=== PATIENT | female | born 1940 | race African-American/Black ===

== ENCOUNTER 2021-10-13 13:23 | Emergency (ER) | payer MEDICARE, SELFPAY ==
--- NOTE | ~2021-10-13 | XR_ITS ---
EXAMINATION: CHEST AND KUB CLINICAL INFORMATION: Fall. Constipation. COMPARISON: None TECHNIQUE: AP upright chest and supine views of the abdomen and pelvis. FINDINGS: AP film of the chest demonstrates the cardiopericardial silhouette to be enlarged. No evidence of interstitial or airspace edema. There is some cephalization of vasculature. No pneumothorax or significant pleural effusion. No confluent parenchymal disease. Status post median sternotomy and CABG. Status post left axillary surgery. On this single view I cannot tell whether there may be a greater tuberosity fracture of the proximal right humerus or calcific tendinitis. Supine imaging of the abdomen and pelvis demonstrates stool throughout nondilated colon. No dilated loops of small bowel are appreciated. There is some osteopenia present as well as coarsened trabeculae involving the right superior and inferior pubic rami and left inferior pubic ramus with poor visualization of portions. This could be related to Paget's disease. There are noted to be bilateral common iliac artery stents, right external iliac artery stent, and bilateral superficial femoral artery stents present. 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 XR/XR chest 1V IMPRESSION: Cardiomegaly without acute parenchymal disease within the chest. Clinical correlation for possible right shoulder injury. Question patchy disease of the pelvis. Stool and gas seen throughout nondilated colon. Question Paget's disease about the pelvis.
--- NOTE | ~2021-10-13 | XR_ITS ---
EXAMINATION: CHEST AND KUB CLINICAL INFORMATION: Fall. Constipation. COMPARISON: None TECHNIQUE: AP upright chest and supine views of the abdomen and pelvis. FINDINGS: AP film of the chest demonstrates the cardiopericardial silhouette to be enlarged. No evidence of interstitial or airspace edema. There is some cephalization of vasculature. No pneumothorax or significant pleural effusion. No confluent parenchymal disease. Status post median sternotomy and CABG. Status post left axillary surgery. On this single view I cannot tell whether there may be a greater tuberosity fracture of the proximal right humerus or calcific tendinitis. Supine imaging of the abdomen and pelvis demonstrates stool throughout nondilated colon. No dilated loops of small bowel are appreciated. There is some osteopenia present as well as coarsened trabeculae involving the right superior and inferior pubic rami and left inferior pubic ramus with poor visualization of portions. This could be related to Paget's disease. There are noted to be bilateral common iliac artery stents, right external iliac artery stent, and bilateral superficial femoral artery stents present. 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 XR/XR KUB IMPRESSION: Cardiomegaly without acute parenchymal disease within the chest. Clinical correlation for possible right shoulder injury. Question patchy disease of the pelvis. Stool and gas seen throughout nondilated colon. Question Paget's disease about the pelvis.
[2021-10-13 13:46] VITALS: BP 130/80; PULSE 48; PULSE 60; RESP 17; TEMP 36.5; O2SAT 98; BMI 36.1
[2021-10-13 14:26] VITALS: BP 161/59; PULSE 58; RESP 18; O2SAT 95
--- NOTE | 2021-10-13 14:40 | ECG_ITS ---
Test Reason : syncope Blood Pressure : / mmHG Vent. Rate : 060 BPM Atrial Rate : 000 BPM P-R Int : 000 ms QRS Dur : 096 ms QT Int : 392 ms P-R-T Axes : 000 059 267 degrees QTc Int : 392 ms Atrial fibrillation with premature ventricular or aberrantly conducted complexes Nonspecifc ST-T changes. Abnormal ECG No previous ECGs available Referred By: Cayetano Oliva Electronically Signed By:Brody Mauro
--- NOTE | 2021-10-13 14:53 | ED_ITS ---
HPI - Syncope General Chief Complaint: Syncope Stated Complaint: SYNCOPE PER SNF NO FALL Time Seen by Provider: 10/13/21 14:35 Source: patient Mode of arrival: EMS Limitations: no limitations History of Present Illness HPI narrative: this is an 81-year-old female past medical history significant for CHF, dementia, hypertension presenting to the emergency department with EMS from a alf facility with concerns of a vasovagal episode just prior to her arrival. EMS states that it was reported to them that patient had been having hard stools, she was in the bathroom pushing trying to have a bowel move ment and she had an episode of syncope. She was accompanied when this happened, she did not hit her head. Patient offers no complaints at this time. She tells me she feels well and she wants to go home. She denies chest pain, shortness of breath, fevers, chills, nausea, vomiting, diarrhea, vision changes, headache, weakness. According to nurse from the alf facility they state that she has been weaker than usual however she has been in good spirits. Pt anticoagulted on candice [employer] complaint: loss of consciousness Onset (ago): hour(s) (2) -: second(s) Prodromal symptoms: none Witnessed: Yes - by Bystander Context: other (during bowel movement ) Injuries sustained associated with event: none Current symptoms: back to baseline Treatments prior to arrival: none Related Data Allergies Allergy/AdvReac Type Severity Reaction Status Date / Time Unable to Assess Allergy Unverified 10/13/21 14:39 Review of Systems Review of Systems: Constitutional : No Weight loss, No Fever, No Chills, No Fatigue, No Malaise ENT/Mouth : No sore throat, No Rhinorrhea Eyes: No Eye Pain, No Swelling, No Redness Cardiovascular : No Chest Pain, No SOB, No Dyspnea on Exertion, No Orthopnea, No Edema, No Palpitations Respiratory : No Cough, No Sputum, No Wheezing Gastrointestinal : No Nausea, No Vomiting, No Diarrhea, No Constipation, No abdominal Pain, No Hematochezia, No Melena Genitourinary : No Dysuria, No Urinary Frequency, No Hematuria, Musculoskeletal : No joint pain, No Myalgias, No Joint Swelling Skin : No Skin Lesions, No rash Neuro : No Weakness, No Numbness, No Dizziness, No Headache All other systems reviewed and are negative Yes all other systems are reviewed and are negative PMFSH Past Medical History Attestation statement: The following information was validated with the patient. Source: old records reviewed and nursing notes reviewed Medical History (Updated 10/13/21 @ 18:22 by LIA Isbell) CHF (congestive heart failure) Dementia HTN (hypertension) Surgical History (Updated 10/13/21 @ 13:53 by Corina Chung RN) H/O mastectomy Hx of CABG S/P femoral-popliteal bypass surgery Social History Social History Advance Directives: No Advance Directives Information Provided: Yes Physical Exam Vital Signs: Vital Signs: Last Vital Signs Temp 98.4 F 10/13/21 18:11 Pulse 80 10/13/21 18:11 Resp 16 10/13/21 18:11 BP 117/87 10/13/21 18:11 Pulse Ox 99 10/13/21 18:11 BMI result Body Mass Index 36.1 vss Patient noted to be slightly hypertensive Appearance: Alert.? Oriented to person (patients baseline).? No acute distres s.? Head: Normocephalic, atraumatic, no step-offs or deformities Eyes: Pupils equal, round and reactive to light.? ENT: Pharynx normal.? Neck: Normal inspection.? Neck supple.? CVS: Normal heart rate and rhythm.? Pulses normal.? Respiratory: No respiratory distress.? Breath sounds normal.? Abdomen: Soft and nontender.? Skin: Skin warm and dry.? Normal skin color.? Normal skin turgor.? Extremities: No lower extremity edema.? No calf ttp. 5/5 strength to bilateral upper and lower extremities Back: No midline tenderness, no C-spine tenderness, full range of motion, no CVA tenderness bilaterally Neuro: Oriented (to person).? No motor deficit.? No sensory deficit. Course Reevaluation(s) Reevaluation #1: patient's labs show no acute infection. A normocytic anemia noted. no acute electrolyte abnormalities. No noted UTI. Time: 18:15 Reevaluation #2: Attempted to call patients healthcare proxy, however no answer. Time: 18:19 Reevaluation #3: KUB shows stool however patient not complaining of abdominal pain. Chest x-ray shows cardiomegaly without acute parenchymal disease. There also is a question of Paget's disease of the bone on the pelvis. Based off patient's labs, history, physical exam, imaging I believe that this was a vasovagal episode. Patient is safe for discharge home this alf facility. Vital signs are stable. Comfortable with discharge home. Time: 19:39 MDM - Syncope MDM Narrative Medical decision making narrative: 1445 81-year-old female past medical history significant for dementia, CHF, hypertension presenting to the emergency department from a alf facility status post a vasovagal episode while having a bowel movement. No preceding symptoms. Patient had been complaining of hard stool for the past few days to staff at [facility]. Nurse from nursing facility tells me patient has been weaker than usual however has been in good spirits. Eating and drinking well. On eliquis Upon physical examination patient is alert to person, this is her baseline. Lungs are clear. S1-S2 appreciated. Abdomen soft nontender nondistended. No focal neuro deficits. Patient able to follow commands. Moving all extremities. Plan at this time is to obtain basic labs, point of care Medical Records Attestation: I reviewed the patient's medical records. Lab Data Attestation: I reviewed the patient's lab results. Result diagrams: 10/13/21 15:57 10/13/21 15:57 Labs: Lab Results 10/13/21 10/13/21 10/13/21 Range/Units 15:28 15:57 15:57 WBC 9.4 (4.8-10.8) X10*3/uL RBC 3.57 L (4.20-5.50) X10*6/uL Hgb 10.0 L (12.0-16.0) g/dl Hct 31.0 L (37.0-47.0) % MCV 86.8 (80.0-98.0) fL MCH 28.0 (27.0-33.0) pg MCHC 32.3 (31.0-35.0) g/dl RDW 14.2 (11.0-16.0) % Plt Count 370 (160-400) X10*3/uL MPV 8.8 L (9.4-12.3) fL Immature Gran % (Auto) 0.3 (0.0-0.4) % Neut % (Auto) 70.4 (45-73) % Lymph % (Auto) 17.3 L (20-40) % Marin % (Auto) 9.0 (2-11) % Eos % (Auto) 2.6 (0-4) % Baso % (Auto) 0.4 (0-2) % Lymph # (Auto) 1.6 (1.2-4.9) X10*3/uL Marin # (Auto) 0.8 (0.1-1.2) X10*3/uL Eos # (Auto) 0.2 (0.0-0.4) X10*3/uL Baso # (Auto) 0.0 (0.0-0.2) X10*3/uL Abs Immat Gran (auto) 0.03 (0.00-0.03) X10*3/uL Absolute Neuts (auto) 6.6 (2.0-8.3) x10*3/uL Absolute Nucleated RBC 0.000 (0.0-0.012) X10*3/uL Nucleated RBC % (auto) 0.0 (0.0-0.2) /100WBC Sodium 142 (135-145) mmol/L Potassium 3.9 (3.3-5.1) mmol/L Chloride 103 (96-108) mmol/L Carbon Dioxide 27 (22-29) mmol/L Anion Gap 16 (12-20) BUN 25 H (9-16) mg/dL Creatinine 1.06 (0.5-1.4) mg/dL Estim Creat Clear Calc 40.6 Estimated GFR 50 POC Glucose 109 (60-115) mg/dL Random Glucose 113 (60-115) mg/dL Calcium 10.0 (8.4-10.2) mg/dL Magnesium 1.5 L (1.6-2.6) mg/dL Total Bilirubin 0.4 (0.0-1.0) mg/dL AST 21 (5-31) U/L ALT 13 (0-31) U/L Alkaline Phosphatase 116 (39-117) U/L Total Protein 8.1 H (6.5-8.0) g/dL Albumin 3.8 (3.5-5.0) g/dL Urine Color Urine Appearance Urine pH (5.0-8.0) Ur Specific Sheridan (1.005-1.025) Urine Protein (NEG-TRACE) MG/DL Urine Glucose (UA) (NEG) MG/DL Urine Ketones (NEG) MG/DL Urine Blood (NEG) Urine Nitrite (NEG) Ur Leukocyte Esterase (NEG) Urine RBC (0) /HPF Urine WBC (0-4) /HPF Ur Squamous Epith Cells /LPF Amorphous Sediment /LPF Urine Bacteria /LPF Urine Mucus /LPF 10/13/21 Range/Units Unknown WBC (4.8-10.8) X10*3/uL RBC (4.20-5.50) X10*6/uL Hgb (12.0-16.0) g/dl Hct (37.0-47.0) % MCV (80.0-98.0) fL MCH (27.0-33.0) pg MCHC (31.0-35.0) g/dl RDW (11.0-16.0) % Plt Count (160-400) X10*3/uL MPV (9.4-12.3) fL Immature Gran % (Auto) (0.0-0.4) % Neut % (Auto) (45-73) % Lymph % (Auto) (20-40) % Marin % (Auto) (2-11) % Eos % (Auto) (0-4) % Baso % (Auto) (0-2) % Lymph # (Auto) (1.2-4.9) X10*3/uL Marin # (Auto) (0.1-1.2) X10*3/uL Eos # (Auto) (0.0-0.4) X10*3/uL Baso # (Auto) (0.0-0.2) X10*3/uL Abs Immat Gran (auto) (0.00-0.03) X10*3/uL Absolute Neuts (auto) (2.0-8.3) x10*3/uL Absolute Nucleated RBC (0.0-0.012) X10*3/uL Nucleated RBC % (auto) (0.0-0.2) /100WBC Sodium (135-145) mmol/L Potassium (3.3-5.1) mmol/L Chloride (96-108) mmol/L Carbon Dioxide (22-29) mmol/L Anion Gap (12-20) BUN (9-16) mg/dL Creatinine (0.5-1.4) mg/dL Estim Creat Clear Calc Estimated GFR POC Glucose (60-115) mg/dL Random Glucose (60-115) mg/dL Calcium (8.4-10.2) mg/dL Magnesium (1.6-2.6) mg/dL Total Bilirubin (0.0-1.0) mg/dL AST (5-31) U/L ALT (0-31) U/L Alkaline Phosphatase (39-117) U/L Total Protein (6.5-8.0) g/dL Albumin (3.5-5.0) g/dL Urine Color YELLOW Urine Appearance HAZY Urine pH 5.5 (5.0-8.0) Ur Specific Sheridan 1.020 (1.005-1.025) Urine Protein NEG (NEG-TRACE) MG/DL Urine Glucose (UA) NEG (NEG) MG/DL Urine Ketones NEG (NEG) MG/DL Urine Blood NEG (NEG) Urine Nitrite NEG (NEG) Ur Leukocyte Esterase 1+ H (NEG) Urine RBC 0-2 (0) /HPF Urine WBC 1-4 (0-4) /HPF Ur Squamous Epith Cells TRACE /LPF Amorphous Sediment 1+ /LPF Urine Bacteria TRACE /LPF Urine Mucus TRACE /LPF Imaging Data Xray of chest and KUB: Attestation: I personally reviewed and interpreted this imaging study as follows: Radiologist's impression: XR/XR chest 1V IMPRESSION: Cardiomegaly without acute parenchymal disease within the chest. Clinical correlation for possible right shoulder injury. ? Question patchy disease of the pelvis. Stool and gas seen throughout nondilated colon. ? Question Paget's disease about the pelvis.? ECG Data Attestation: I personally reviewed and interpreted this ECG as follows: ECG interpretation date: 10/13/21 ECG interpretation time: 14:50 Prior ECG tracings: not available for review Interpretation: ventricular rate of 60, QRS normal, QTC normal. EKG shows atrial fibrillation. No ST elevations or inversions concerning for acute ischemia. No previous EKGs to compare with. Critical Care Time Critical Care Time Critical Care Time: Yes Total Critical Care Time: 36 Attestation: I attest to this time spent taking care of the patient speaking to SNF, calling healthcare proxy, reviewing labs, imaging. Discharge Plan Discharge Clinical Impression: Vasovagal syncope Patient Disposition: Xfer [facility] Instructions: Syncope (ED), Syncope in Older Adults (ED) Additional Instructions: Take your medications as prescribed. Follow-up with your primary care provider this week. Xray concerning for pagets disease of the bone in pelvis region, follow up with PCP. Return to the emergency department with new or worsening symptoms. In case of emergency call 911 Referrals: Lemuel Waddell MD [Primary Care Provider] - 2 days
[2021-10-13 15:33] LABS: Glucose, Whole Blood 109 mg/dL (60-115)
[2021-10-13 15:34] VITALS: BP 112/60; PULSE 64; RESP 16; TEMP 37.1; O2SAT 95
[2021-10-13 15:49] LABS: Appearance Urine HAZY; Color Urine YELLOW; Glucose Urine UA NEG (NEG); Leukocyte Esterase Urine 1+ (NEG); Nitrite Urine NEG (NEG); PH 5.5 (5.0-8.0); UACC Culture Trigger YES; Urine Blood NEG (NEG); Urine Ketones NEG (NEG); Urine Protein NEG (NEG-TRACE)
[2021-10-13 16:13] LABS: Amorphous Sediment Urine 1+ /LPF; Bacteria Urine TRACE /LPF; Mucus Urine TRACE /LPF; RBC Urine 0-2 /HPF (0); Squamous Epithelial Cell Urine TRACE /LPF; UACC CULT YES
--- NOTE | 2021-10-13 16:31 | PC.NURSE ---
PATIENT WAS INCONTINENT OF URINE ,PATIENT WAS CLEAN UP AND ASSISTED ON BEDPAN
[2021-10-13 16:39] LABS: MANUAL DIFF FLAG NO
[2021-10-13 16:42] LABS: Basophils Percent Auto 0.4 % (0-2); Eosinophils Absolute Auto 0.2 X10*3/uL (0.0-0.4); Eosinophils Percent Auto 2.6 % (0-4); Imm Gran Abs Auto 0.03 X10*3/uL (0.00-0.03); Imm Gran Pct Auto 0.3 % (0.0-0.4); Lymphocytes Absolute Auto 1.6 X10*3/uL (1.2-4.9); Lymphocytes Percent Auto 17.3 % (20-40); Mean Corpuscular HGB Conc 32.3 g/dl (31.0-35.0); Mean Corpuscular Volume 86.8 fL (80.0-98.0); Mean Platelet Volume 8.8 fL (9.4-12.3); Monocytes Absolute Auto 0.8 X10*3/uL (0.1-1.2); Neutrophils Absolute Auto 6.6 x10*3/uL (2.0-8.3); Neutrophils Percent Auto 70.4 % (45-73); Platelet Count 370 X10*3/uL (160-400); Red Blood Count 3.57 X10*6/uL (4.20-5.50); Red Cell Distribution Width 14.2 % (11.0-16.0); White Blood Count 9.4 X10*3/uL (4.8-10.8)
[2021-10-13 16:56] LABS: Alanine Aminotransferase 13 U/L (0-31); Albumin Level 3.8 g/dL (3.5-5.0); Alkaline Phosphatase 116 U/L (39-117); Anion Gap 16 (12-20); Aspartate Amino Transferase 21 U/L (5-31); Bilirubin Total 0.4 mg/dL (0.0-1.0); Blood Urea Nitrogen 25 mg/dL (9-16); Carbon Dioxide 27 mmol/L (22-29); Chloride 103 mmol/L (96-108); Creatinine Clr Calc Pharmacy 40.6; Estimated Glomerular Filt Rate 50; Glucose Random 113 mg/dL (60-115); Magnesium 1.5 mg/dL (1.6-2.6); Potassium 3.9 mmol/L (3.3-5.1); Sodium 142 mmol/L (135-145); Total Protein 8.1 g/dL (6.5-8.0)
[2021-10-13 18:11] VITALS: BP 117/87; PULSE 80; RESP 16; TEMP 36.9; O2SAT 99
[2021-10-13 20:29] VITALS: BP 118/62; PULSE 64; RESP 16; TEMP 36.6; O2SAT 99
== END 2021-10-13 21:27 | disposition skilled nursing facility (03) ==
PROVIDERS: Physician Assistant; Emergency Provider Emergency Medicine; PCP Family Medicine
DX: R55 Syncope and collapse (principal); I11.0 Hypertensive heart disease with heart failure; I50.9 Heart failure, unspecified; D64.9 Anemia, unspecified; F03.90 Unspecified dementia, unspecified severity, without behavioral disturbance, psychotic disturbance, mood disturbance, and anxiety; Z79.01 Long term (current) use of anticoagulants
CPT/HCPCS: 36415; 71045; 74018; 80053; 81001; 82947; 83735; 85025; 87086; 93005; 99284; 99291

== ENCOUNTER 2021-12-16 | Outpatient (RCR) | payer MEDICARE, BC, SELFPAY | END 2022-05-15 14:36 | disposition home or self-care (01) | LOC: HO.WCC | PROVIDERS: PCP Family Medicine; Visit Provider Physician Assistant | DX: T24.211D Burn of second degree of right thigh, subsequent encounter (principal); E44.1 Mild protein-calorie malnutrition; I10 Essential (primary) hypertension; F03.90 Unspecified dementia, unspecified severity, without behavioral disturbance, psychotic disturbance, mood disturbance, and anxiety; T31.0 Burns involving less than 10% of body surface; Z90.12 Acquired absence of left breast and nipple; Z99.81 Dependence on supplemental oxygen | CPT/HCPCS: 11042; 16020; 99212 ==

== ENCOUNTER 2022-08-22 16:25 | Inpatient (IN) | payer MEDICARE, OTHER, SELFPAY ==
--- NOTE | ~2022-08-22 | CT_ITS ---
EXAMINATION: CT HEAD WITHOUT CONTRAST CLINICAL INFORMATION: Left lower extremity weakness. Anticoagulated. COMPARISON: None TECHNIQUE: Contiguous axial imaging was performed from the skull base to vertex without intravenous administration of contrast. This CT examination was performed using dose optimization techniques as appropriate, variously including the following: *Automated exposure control *Adjustment of mA and/or kV according to patient size (this includes techniques or standardized protocols for targeted exams where dose is matched to indication/reason for exam; i.e. extremities or head) *Use of iterative reconstruction technique DLP: 605 mGy-cm FINDINGS: No acute infarct or hemorrhage. Symmetrical white matter changes most consistent with terminal supply white matter chronic lacunar ischemic/infarct involving the jorgensen radiata and centrum semiovale. In addition, there is involvement of the striatocapsular regions consistent with involvement of the lenticular striate arteries as well. No extra axial collection. Brainstem and cerebellum intact. No calvarial lesion or sinus disease. CT/CT head/brain wo IV con IMPRESSION: No acute intracranial pathology.
--- NOTE | ~2022-08-22 | XR_ITS ---
EXAMINATION: XR CHEST CLINICAL INFORMATION: Syncope COMPARISON: 10/13/2021 TECHNIQUE: Frontal view of the chest was obtained. FINDINGS: Evidence of increased cardiac surgery. Clips left axilla. Marked cardiomegaly changes of CHF. No major zones of airspace disease ectopic air or large pleural effusion. XR/XR chest 1V IMPRESSION: CHF.
--- NOTE | ~2022-08-22 | US_ITS ---
EXAMINATION: US EXTRACRANIAL CAROTID DUPLEX, BILATERAL CLINICAL INFORMATION: Syncope COMPARISON: None TECHNIQUE: Real-time ultrasound and Doppler techniques (integrating B-mode 2-D vascular images, Doppler spectral analysis and color-flow Doppler imaging) were utilized to interrogate the extracranial carotid arteries, the vertebral arteries and proximal subclavian arteries bilaterally. The degree of stenosis is determined by criteria similar to NASCET. FINDINGS: Right Side: 1. There is mild atherosclerotic plaque seen in the bifurcation/proximal ICA region. 2. The common carotid artery PSV proximally is 65 cm/s and distally 78 cm/s. 3. The proximal internal carotid artery velocities are 72 cm/s systolic and 11 cm/s diastolic. 4. The proximal external carotid artery PSV is 136 cm/s. 5. The vertebral artery shows antegrade flow. 6. The subclavian artery waveforms are normal. Left Side: 1. There is mild atherosclerotic plaque seen in the bifurcation/proximal ICA region. 2. The common carotid artery PSV proximally is 112 cm/s and distally 78 cm/s. 3. The proximal internal carotid artery velocities are 49 cm/s systolic and 13 cm/s diastolic. 4. The proximal external carotid artery PSV is 103 cm/s. 5. The vertebral artery shows antegrade flow. 6. The subclavian artery waveforms are normal. Incidental note of cardiac arrhythmia. US/US carotid duplex BI IMPRESSION: 1. RIGHT: Minimal, non-hemodynamically significant stenosis of the proximal right internal carotid artery corresponding to a 0-49% stenosis by velocity criteria. 2. LEFT: Minimal, non-hemodynamically significant stenosis of the proximal left internal carotid artery corresponding to a 0-49% stenosis by velocity criteria. 3. Incidental note of cardiac arrhythmia.
[2022-08-22 16:31] VITALS: BP 135/78; PULSE 66; O2SAT 98
--- NOTE | 2022-08-22 16:46 | ECG_ITS ---
Test Reason : SYNCOPE Blood Pressure : / mmHG Vent. Rate : 059 BPM Atrial Rate : 000 BPM P-R Int : 000 ms QRS Dur : 100 ms QT Int : 420 ms P-R-T Axes : 000 026 -19 degrees QTc Int : 415 ms Atrial fibrillation with slow ventricular response Nonspecific ST abnormality Inferior leads Lateral leads Intra-ventricular conduction delay Abnormal ECG When compared with ECG of 13-OCT-2021 14:50, ST no longer depressed in Anterior leads T wave inversion no longer evident in Lateral leads Premature ventricular complexes are no longer Present \ Referred By: Audrey Jalloh Electronically Signed By:DORIS WALDROP MD
[2022-08-22 16:51] VITALS: BMI 34.4
[2022-08-22 17:02] VITALS: BP 140/66; PULSE 68; RESP 15; TEMP 36.7; O2SAT 95
--- NOTE | 2022-08-22 17:03 | PC.NURSE ---
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
--- NOTE | 2022-08-22 17:52 | ED.SYNCOPE ---
HPI - Syncope General Chief Complaint: Syncope Stated Complaint: Syncopal Episode Time Seen by Provider: 08/22/22 17:30 Source: patient Mode of arrival: EMS Limitations: no limitations History of Present Illness HPI narrative: 82-year-old female who presents emergency department for evaluation of syncopal episode. The patient has of dementia and cannot give me details of her syncopal episode. According to the note sent in from the patient's care facility, the patient was eating dinner and then had an episode of loss of consciousness. The patient's provider, Dr. Reyes did call the emergency department and stated that the patient had a syncopal episode. He stated that the patient similar syncopal episodes in the past. He stated that the patient did not have any decreased oxygen saturations and no changes in her vital signs. ED nursing note reports that the patient was hypoxic and hypotensive. In reviewing the patient's records, she has a history of dementia, hypertension, hypertension, CHF, atrial fibrillation on Eliquis, syncope, , fem-pop bypass, CABG and left mastectomy. Patient was seen in the emergency department on 10/13/2021 for syncopal episode while she was moving her bowels, at that time her diagnosis was vasovagal syncope. The patient's friend, Jessica who is with her states the patient has been in bed recently and has had difficulty with her mobility for the past several weeks. I did speak to the patient's nephew, Dr. Simeon Ferrara who is an physician coder/veterinarian helper and can be reached at . He is concerned that his aunt is had multiple syncopal episodes and that she may be having any arrhythmia or heart block as the cause. He also states that is not aware of any stroke in the past but he did note that the patient is a decreased mobility over the past month. Related Data Allergies Allergy/AdvReac Type Severity Reaction Status Date / Time Unable to Assess Allergy Unverified 10/13/21 14:39 Review of Systems Review of Systems: Yes Unobtainable due to mental status (Chronic dementia) [facility] Past Medical History [facility] Narrative: Social history: Patient lives in [facility] facility, she does not drink alcohol smoke cigarettes or use drugs. Medical History CHF (congestive heart failure) Dementia HTN (hypertension) Surgical History H/O mastectomy Hx of CABG S/P femoral-popliteal bypass surgery Social History Social History Advance Directives: No Advance Directives Information Provided: No Physical Exam Vital Signs: Vital Signs: Last Vital Signs Temp 98.6 F 08/22/22 20:00 Pulse 79 08/22/22 20:00 Resp 13 08/22/22 20:00 BP 153/77 H 08/22/22 20:00 Pulse Ox 92 08/22/22 20:00 O2 Del Method 08/22/22 20:00 BMI result Body Mass Index 34.4 Const: General: cooperative and no acute distress Orientation/consciousness: oriented to person Limitations: other limitations (Dementia) HEENT: Head: Yes normal to inspection, Yes normocephalic and Yes atraumatic Ears: external ears normal General nose exam: Normal external nose present Face and sinus: Yes normal facial exam Mouth: Normal oral and palatal mucosa present Throat: Yes posterior oropharynx normal Eyes: General: appearance normal, both eyes and all related structures Pupils: Equal, round and reactive pupils present Neck: Neck: Yes normal visual inspection, Yes no lymphadenopathy, Yes trachea midline and Yes supple Chest: Chest palpation & inspection: normal inspection of the chest and normal palpation of entire chest wall Resp: Effort & Inspection: normal respiratory effort and able to speak in complete sentences Auscultation: clear to auscultation bilaterally Cardio: Rate: regular rate Rhythm: regular rhythm Heart sounds: S1 normal heart sound present, S2 normal heart sound present and Murmur heart sound present systolic holo, III/ and at the left sternal border GI: Inspection: Yes normal to inspection Palpation (GI): Soft to palpation, nontender and no guarding Auscultation: normal bowel sounds : General: Yes no CVA tenderness Back/Spine/Pelvis: Back: no CVA tenderness Skin: General skin exam: no rashes or lesions noted Neuro: Other: Strength exam: Holds both arms up against gravity, left arm appears to be weaker than left, minimally able to move his left lower extremity from side to side General: oriented to person Cranial nerves: Yes CN's II-XII intact bilaterally and Yes Equal, round and reactive pupils present Cognition (Neuro): normal cognition Motor exam (neuro): Abnormal motor strength present Extrem: General: Yes normal to inspection Psych: Appearance: grossly normal Speech and movement: Normal speech and movement present Affect: normal affect Attitude: cooperative Thought process: Normal thought process present Course Course Course Narrative: 82-year-old female who presents emergency department for evaluation of a witnessed syncopal episode at her care facility, apparently she had a loss of consciousness for 5 minutes, according to her doctor at the facility, she had no hypotension and no hypoxia. Patient has had similar syncopal episodes in the past. Her examination did reveal a heart exam with irregular irregular rhythm, 3/6 systolic murmur best heard at the left lower sternal border, left-sided weakness which is old, otherwise exam was unremarkable. I did order a syncope workup to include CBC, CMP, troponin, BNP, PT INR, PTT, urinalysis. Will also obtain a 12 EKG , CT scan of the head and chest x-ray. 215: There was a delay in getting this patient's blood work since she was very difficult to get blood from, every attempt to give blood the patient would resist and fight, we were not able to establish an IV on her. Laboratory evaluation: H&H low: 8.6 and 27. CMP was normal. BNP elevated 228. High sensitive troponin was detectable but not elevated 8.6. Laboratory evaluation: Chest x-ray was consistent with cardiomegaly and increased interstitial markings consistent with CHF. CT scan of the head : Radiology interpretation did not reveal any acute findings, the patient does have evidence of old lacunar infarcts and white matter changes. Twelve EKG atrial fibrillation with a slow ventricular response of 59, Q-waves V1 and V2 with less than [address] segment depression V5 through V6 which is old. At this time I do not have a clear etiology for the patient's syncope, she has had multiple episodes in the past, I did discuss this with the patient's nephew who is an physician coder who was concerned that the patient may be having a cardiac arrhythmia as the cause of her syncopal episode. I did discuss this with the patient's healthcare proxy who was here in the emergency department with her as well. The patient will be admitted for syncopal workup. I will discuss this with the covering hospitalist. MDM - Syncope Medical Records Attestation: I reviewed the patient's medical records. Lab Data Attestation: I reviewed the patient's lab results. Result diagrams: 08/22/22 21:06 08/22/22 20:12 Labs: Lab Results 08/22/22 08/22/22 08/22/22 Range/Units 20:12 20:12 21:06 WBC 8.3 (4.8-10.8) X10*3/uL RBC 3.28 L (4.20-5.50) X10*6/uL Hgb 8.6 L (12.0-16.0) g/dl Hct 27.1 L (37.0-47.0) % MCV 82.6 (80.0-98.0) fL MCH 26.2 L (27.0-33.0) pg MCHC 31.7 (31.0-35.0) g/dl RDW 14.6 (11.0-16.0) % Plt Count 374 (160-400) X10*3/uL MPV 8.7 L (9.4-12.3) fL Immature Gran % (Auto) 0.4 (0.0-0.4) % Neut % (Auto) 59.0 (45-73) % Lymph % (Auto) 25.2 (20-40) % [place] % (Auto) 11.8 H (2-11) % Eos % (Auto) 3.1 (0-4) % Baso % (Auto) 0.5 (0-2) % Lymph # (Auto) 2.1 (1.2-4.9) X10*3/uL [place] # (Auto) 1.0 (0.1-1.2) X10*3/uL Eos # (Auto) 0.3 (0.0-0.4) X10*3/uL Baso # (Auto) 0.0 (0.0-0.2) X10*3/uL Abs Immat Gran (auto) 0.03 (0.00-0.03) X10*3/uL Absolute Neuts (auto) 4.9 (2.0-8.3) x10*3/uL Absolute Nucleated RBC 0.000 (0.0-0.012) X10*3/uL Nucleated RBC % (auto) 0.0 (0.0-0.2) /100WBC PT Cancelled INR Cancelled APTT Cancelled Sodium 138 (135-145) mmol/L Potassium 5.1 D (3.3-5.1) mmol/L Chloride 102 (96-108) mmol/L Carbon Dioxide 23 (22-29) mmol/L Anion Gap 18 (12-20) BUN 21 H (9-16) mg/dL Creatinine 1.07 (0.5-1.4) mg/dL Estim Creat Clear Calc 38.6 Estimated GFR 49 Random Glucose 108 (60-115) mg/dL Calcium 9.3 D (8.4-10.2) mg/dL Total Bilirubin 0.3 (0.0-1.0) mg/dL AST 27 (5-31) U/L ALT 19 (0-31) U/L Alkaline Phosphatase 99 (39-117) U/L Troponin I High Sens (<3.5-17.0) ng/L B-Natriuretic Peptide (<100) pg/mL Total Protein 7.7 (6.5-8.0) g/dL Albumin 3.4 L (3.5-5.0) g/dL 08/22/22 Range/Units 21:06 WBC (4.8-10.8) X10*3/uL RBC (4.20-5.50) X10*6/uL Hgb (12.0-16.0) g/dl Hct (37.0-47.0) % MCV (80.0-98.0) fL MCH (27.0-33.0) pg MCHC (31.0-35.0) g/dl RDW (11.0-16.0) % Plt Count (160-400) X10*3/uL MPV (9.4-12.3) fL Immature Gran % (Auto) (0.0-0.4) % Neut % (Auto) (45-73) % Lymph % (Auto) (20-40) % [place] % (Auto) (2-11) % Eos % (Auto) (0-4) % Baso % (Auto) (0-2) % Lymph # (Auto) (1.2-4.9) X10*3/uL [place] # (Auto) (0.1-1.2) X10*3/uL Eos # (Auto) (0.0-0.4) X10*3/uL Baso # (Auto) (0.0-0.2) X10*3/uL Abs Immat Gran (auto) (0.00-0.03) X10*3/uL Absolute Neuts (auto) (2.0-8.3) x10*3/uL Absolute Nucleated RBC (0.0-0.012) X10*3/uL Nucleated RBC % (auto) (0.0-0.2) /100WBC PT INR APTT Sodium (135-145) mmol/L Potassium (3.3-5.1) mmol/L Chloride (96-108) mmol/L Carbon Dioxide (22-29) mmol/L Anion Gap (12-20) BUN (9-16) mg/dL Creatinine (0.5-1.4) mg/dL Estim Creat Clear Calc Estimated GFR Random Glucose (60-115) mg/dL Calcium (8.4-10.2) mg/dL Total Bilirubin (0.0-1.0) mg/dL AST (5-31) U/L ALT (0-31) U/L Alkaline Phosphatase (39-117) U/L Troponin I High Sens 8.6 (<3.5-17.0) ng/L B-Natriuretic Peptide 228 H (<100) pg/mL Total Protein (6.5-8.0) g/dL Albumin (3.5-5.0) g/dL ECG Data Attestation: I personally reviewed and interpreted this ECG as follows: Interpretation: Atrial fibrillation with a slow ventricular rate of 59, prolonged QRS 100 milliseconds, normal QTC 415 milliseconds, Q-waves in V1 and V2, less than [address] segment depression V5 and V6, compared to EKG dated 10/13/2021, the atrial fibrillation in low rate are old, Q-waves V1 through V 2 are old, previous EKG revealed PVCs not seen on this EKG. Discharge Plan Discharge Clinical Impression: Syncope
--- NOTE | 2022-08-22 18:43 | PC.NURSE ---
unable to draw patient labs as patient a difficult draw ,rn aware ,darlin charles said she was goining to use ultra sound guided to put bin iv and get labs .
[2022-08-22 18:47] VITALS: BP 157/73; PULSE 72; RESP 15; TEMP 37.3; O2SAT 96
[2022-08-22 20:00] VITALS: BP 153/77; PULSE 79; RESP 13; TEMP 37; O2SAT 92
[2022-08-22 20:51] LABS: Alanine Aminotransferase 19 U/L (0-31); Albumin Level 3.4 g/dL (3.5-5.0); Alkaline Phosphatase 99 U/L (39-117); Anion Gap 18 (12-20); Aspartate Amino Transferase 27 U/L (5-31); Bilirubin Total 0.3 mg/dL (0.0-1.0); Blood Urea Nitrogen 21 mg/dL (9-16); Calcium 9.3 mg/dL (8.4-10.2); Carbon Dioxide 23 mmol/L (22-29); Chloride 102 mmol/L (96-108); Creatinine Clr Calc Pharmacy 38.6; Estimated Glomerular Filt Rate 49; Glucose Random 108 mg/dL (60-115); Potassium 5.1 mmol/L (3.3-5.1); Sodium 138 mmol/L (135-145); Total Protein 7.7 g/dL (6.5-8.0)
[2022-08-22 21:13] LABS: Basophils Percent Auto 0.5 % (0-2); Eosinophils Absolute Auto 0.3 X10*3/uL (0.0-0.4); Eosinophils Percent Auto 3.1 % (0-4); Hematocrit 27.1 % (37.0-47.0); Hemoglobin 8.6 g/dl (12.0-16.0); Imm Gran Abs Auto 0.03 X10*3/uL (0.00-0.03); Imm Gran Pct Auto 0.4 % (0.0-0.4); Lymphocytes Absolute Auto 2.1 X10*3/uL (1.2-4.9); Lymphocytes Percent Auto 25.2 % (20-40); Mean Corpuscular HGB Conc 31.7 g/dl (31.0-35.0); Mean Corpuscular Hemoglobin 26.2 pg (27.0-33.0); Mean Corpuscular Volume 82.6 fL (80.0-98.0); Mean Platelet Volume 8.7 fL (9.4-12.3); Monocytes Percent Auto 11.8 % (2-11); Neutrophils Absolute Auto 4.9 x10*3/uL (2.0-8.3); Platelet Count 374 X10*3/uL (160-400); Red Blood Count 3.28 X10*6/uL (4.20-5.50); Red Cell Distribution Width 14.6 % (11.0-16.0); White Blood Count 8.3 X10*3/uL (4.8-10.8)
--- NOTE | 2022-08-22 21:30 | PC.NURSE ---
Patient was an extremely difficult stick for both labs and IV. MD attempted groin stick for labs but were not able to be run.
[2022-08-22 21:36] LABS: B Type Natriuretic Peptide 228 pg/mL (<100); Troponin-I High Sensitivity 8.6 ng/L (<3.5-17.0)
[2022-08-22 21:53] VITALS: BP 160/72; PULSE 78; RESP 14; TEMP 36.8; O2SAT 98
[2022-08-22 23:01] VITALS: BP 164/81; PULSE 83; RESP 20; TEMP 36.8; O2SAT 97
--- NOTE | 2022-08-22 23:04 | P.HPHOSP_ITS ---
History of Present Illness Date of Service: 08/22/22 Chief Complaint: Syncope This is a 82-year-old female with a pertinent history of permanent atrial fibrillation on Eliquis, dementia, essential hypertension, congestive heart failure, coronary artery disease status post CABG, peripheral vascular disease status post fem-pop bypass who was sent by patient's care facility for evaluation of syncope. Patient is pleasantly demented and is only oriented to self. She is unable to provide any history at this time. History was obtained from chart review as below: According to the note sent in from the patient's care facility, the patient was eating dinner and then had an episode of loss of consciousness.? The patient's provider, Dr. Reyes did call the emergency department and stated that the patient had a syncopal episode.? He stated that the patient similar syncopal episodes in the past.? He stated that the patient did not have any decreased oxygen saturations and no changes in her vital signs. Patient was seen in the emergency department on 10/13/2021 for syncopal episode while she was moving her bowels, at that time her diagnosis was vasovagal syncope.? The patient's friend, Jessica states the patient has been in bed recently and has had difficulty with her mobility for the past several weeks. ER physician spoke to nephjuan luis, Dr. Simeon Ferrara who is an public works supervisor/security officer and can be reached at .? He is concerned that his aunt has had multiple syncopal episodes and that she may be having any arrhythmia or heart block as the cause.? He requested admission for cardiac workup to rule out cardiogenic syncope. Review of Systems Review of Systems: Yes Unobtainable due to mental status [facility] Medical History (Updated 08/22/22 @ 23:12 by Karri Rubio MD) Atrial fibrillation CHF (congestive heart failure) Coronary artery disease Dementia HTN (hypertension) Peripheral vascular disease Surgical History H/O mastectomy Hx of CABG S/P femoral-popliteal bypass surgery Social History Advance Directives: No Advance Directives Information Provided: No Meds Allergies Allergy/AdvReac Type Severity Reaction Status Date / Time Unable to Assess Allergy Unverified 10/13/21 14:39 Active Medications: Current Medications Acetaminophen (Acetaminophen 325 Mg Tablet) 650 mg PO Q6H PRN PRN Reason: Pain, Mild (Pain Scale 1-3) Melatonin (Melatonin 3 Mg Tablet) 6 mg PO BEDTIME PRN PRN Reason: Insomnia Ondansetron HCl (Ondansetron Hcl 4 Mg/2 Ml Vial) 4 mg IVPUSH Q8H PRN PRN Reason: Nausea and Vomiting Pharmacy Consult (Consult Rx Perform Med Rec) 1 each MISCELLANE ONCE STA Stop: 08/22/22 22:30 Sodium Chloride (0.9 % Sodium Chloride Flush 3 Ml Syringe) 3 ml IVFLUSH QSHIFT [facility] Physical Exam Vital Signs and Narrative: Vital Signs: Last Vital Signs Temp 98.3 F 08/22/22 21:53 Pulse 78 08/22/22 21:53 Resp 14 08/22/22 21:53 BP 160/72 H 08/22/22 21:53 Pulse Ox 98 08/22/22 21:53 O2 Del Method 08/22/22 21:53 BMI result Body Mass Index 34.4 Elderly female lying in bed in no distress Neck supple, no JVD Irregularly irregular, S1-S2 heard, systolic murmur appreciated Decreased breath sounds at bases, no wheezing or crackles appreciated Abdomen soft nontender, no guarding, no rigidity Patient is awake, alert and oriented to self, disoriented to place, time and person ; no ophthalmoplegia, left-sided weakness seen Psych: Normal mood No pedal edema Results Labs CBC and Chem 7: 08/22/22 21:06 08/22/22 20:12 Labs: Laboratory Results - last 24 hr 08/22/22 08/22/22 08/22/22 20:12 20:12 21:06 MCV 82.6 MCH 26.2 L MCHC 31.7 RDW 14.6 Plt Count 374 MPV 8.7 L Immature Gran % (Auto) 0.4 Neut % (Auto) 59.0 Lymph % (Auto) 25.2 [place] % (Auto) 11.8 H Eos % (Auto) 3.1 Baso % (Auto) 0.5 Lymph # (Auto) 2.1 [place] # (Auto) 1.0 Eos # (Auto) 0.3 Baso # (Auto) 0.0 Abs Immat Gran (auto) 0.03 Absolute Neuts (auto) 4.9 Absolute Nucleated RBC 0.000 Nucleated RBC % (auto) 0.0 PT Cancelled INR Cancelled APTT Cancelled Anion Gap 18 Estim Creat Clear Calc 38.6 Estimated GFR 49 Random Glucose 108 Calcium 9.3 D Total Bilirubin 0.3 AST 27 ALT 19 Alkaline Phosphatase 99 Troponin I High Sens B-Natriuretic Peptide Total Protein 7.7 Albumin 3.4 L 08/22/22 21:06 MCV MCH MCHC RDW Plt Count MPV Immature Gran % (Auto) Neut % (Auto) Lymph % (Auto) [place] % (Auto) Eos % (Auto) Baso % (Auto) Lymph # (Auto) [place] # (Auto) Eos # (Auto) Baso # (Auto) Abs Immat Gran (auto) Absolute Neuts (auto) Absolute Nucleated RBC Nucleated RBC % (auto) PT INR APTT Anion Gap Estim Creat Clear Calc Estimated GFR Random Glucose Calcium Total Bilirubin AST ALT Alkaline Phosphatase Troponin I High Sens 8.6 B-Natriuretic Peptide 228 H Total Protein Albumin Imaging Radiologist's Impressions: Impressions Chest X-Ray 08/22/22 18:45 IMPRESSION: CHF. Head CT 08/22/22 18:56 IMPRESSION: No acute intracranial pathology. Assessment and Plan (1) Syncope: Status: Acute (2) Atrial fibrillation: Status: Acute (3) Peripheral vascular disease: Status: Acute (4) Coronary artery disease: Status: Acute (5) CHF (congestive heart failure): Status: Acute (6) Dementia: Status: Acute (7) HTN (hypertension): Status: Acute Plan This is a 82-year-old female with a pertinent history of permanent atrial fibrillation on Eliquis, dementia, essential hypertension, congestive heart failure, coronary artery disease status post CABG, peripheral vascular disease status post fem-pop bypass who was sent by patient's care facility for evaluation of syncope. #. Syncope, recurrent -unclear etiology. Obtain orthostatic vital signs. Will admit patient on residential monitor to rule out cardiogenic etiology. Also obtaining transthoracic echocardiogram to delineate valve anatomy.. #. Atrial fibrillation on Eliquis -rate controlled in the ER. Patient is on 2.5 mg b.i.d. Unclear why patient is on reduced dose, does qualify for full-dose as patient is greater than 60 kg and serum creatinine is less than 1.5. #. Essential hypertension #. Congestive heart failure, unspecified ejection fraction -currently compensated. Obtaining echo as above. continue home p.o. medications including hydralazine, carvedilol, clonidine, amlodipine, losartan, Lasix and isosorbide #. Coronary artery disease status post CABG #. Peripheral vascular disease status post fem-pop bypass -not on antiplatelet therapy. Is on high-intensity statin #. 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
[2022-08-22 23:35] LABS: MANUAL DIFF FLAG NO
[2022-08-22 23:55] LABS: COVID-19 Test Positive (Negative); IDNOW Serial# 16C4AD1C
[2022-08-23] VITALS (9 sets, daily range): BP systolic 108–184; BP diastolic 54–81; PULSE 56–76; RESP 12–20; TEMP 36.1–36.9; O2SAT 94–98
--- NOTE | 2022-08-23 00:29 | PC.NURSE ---
Per SNF notes patient tested positive for covid and had a 5 day course of Paxlovid.
[2022-08-23] MEDS: clonazePAM 1 MG TABLET 0.25 MG PO ×2 (01:32→21:59)
[2022-08-23] MEDS: amLODIPine Besylate 2.5 MG TABLET PO ×2 (01:33→08:59)
[2022-08-23] MEDS: Gabapentin 300 MG CAPSULE PO ×2 (01:33→21:59)
[2022-08-23] MEDS: Melatonin 3 MG TABLET 6 MG PO (01:33)
[2022-08-23] MEDS: Acetaminophen 325 MG TABLET 650 MG PO (01:34)
--- NOTE | 2022-08-23 01:40 | PC.NURSE ---
PATIENT WAS INCONTINENT OF URINE ,JUAN CARE GIVEN ,LINER CHANGE PUREWICK IN PLACE .
--- NOTE | 2022-08-23 06:16 | PC.NURSE ---
Orthostatics not done. Patient is not mobile
--- NOTE | 2022-08-23 06:29 | PC.NURSE ---
PATIENT WAS CHECK FOR INCONTINENCE CARE AT 6AM ,PATIENT IS DRY PUREWICK STILL IN PLACE ,PATIENT WAS REPOSITION AND DRANK 120 ML WATER THROUGHOUT THE NIGHT ,CALL DOAN IN PLACE .
--- NOTE | 2022-08-23 08:49 | PC.NURSE ---
Flaquita Marquis notified about the patients HR hovering between 55-75. Provider ordered to give morning dose of carvedilol
[2022-08-23] MEDS: cloNIDine HCL 0.1 MG TABLET PO ×2 (08:58→21:59)
[2022-08-23] MEDS: Apixaban 2.5 MG TABLET PO ×2 (08:58→21:58)
[2022-08-23] MEDS: Atorvastatin Calcium 40 MG TABLET PO (08:58)
[2022-08-23] MEDS: carvediloL 12.5 MG TABLET PO ×2 (08:58→21:59)
[2022-08-23] MEDS: Isosorbide Mononitrate 60 MG TAB.ER.24H PO (08:58)
[2022-08-23] MEDS: Furosemide 40 MG TABLET PO (08:58)
[2022-08-23] MEDS: hydrALAZINE HCl 25 MG TABLET PO ×3 (08:59→21:59)
[2022-08-23] MEDS: QUEtiapine Fumarate 25 MG TABLET PO (08:59)
[2022-08-23] MEDS: Losartan Potassium 50 MG TABLET PO (08:59)
[2022-08-23] MEDS: 0.9 % Sodium Chloride Flush 3 ML SYRINGE IVFLUSH ×2 (09:02→16:23)
--- NOTE | 2022-08-23 09:46 | PC.NURSE ---
Patient had difficulty swallowing medications. Provider notified.
--- NOTE | 2022-08-23 10:55 | PHA.MEDREC ---
Addendum entered by Yosvany England 08/23/22 10:56: Utilized SNF list to verify meds Original Note: Pharmacy Consult ? Medication Reconciliation Pharmacy has completed the medication reconciliation. Reviewed med rec done by nursing and adjusted accordingly.
--- NOTE | 2022-08-23 13:43 | HO.PM.IMPN ---
Subjective Subjective Date of Service: 08/23/22 Review of Systems Follow up Covid 19 Physical Exam Vital Signs: Vital Signs: Last Vital Signs Temp 98 F 08/23/22 09:21 Pulse 66 08/23/22 09:21 Resp 12 08/23/22 09:21 BP 148/71 H 08/23/22 09:21 Pulse Ox 98 08/23/22 08:30 O2 Del Method 08/23/22 09:21 O2 Flow Rate 91 08/23/22 09:21 BMI result Body Mass Index 34.4 Objective Data Active Medications Acetaminophen (Acetaminophen 325 Mg Tablet) 650 mg PO Q6H PRN PRN Reason: Pain, Mild (Pain Scale 1-3) Last Admin: 08/23/22 01:34 Dose: 650 mg Documented By: JOSE EDUARDO Amlodipine Besylate (Amlodipine Besylate 2.5 Mg Tablet) 2.5 mg PO DAILY [facility]; Protocol Last Admin: 08/23/22 08:59 Dose: 2.5 mg Documented By: KRISTIN Apixaban (Apixaban 2.5 Mg Tablet) 2.5 mg PO BID [facility] Last Admin: 08/23/22 08:58 Dose: 2.5 mg Documented By: KRISTIN Atorvastatin Calcium (Atorvastatin Calcium 40 Mg Tablet) 40 mg PO DAILY [facility] Last Admin: 08/23/22 08:58 Dose: 40 mg Documented By: KRISTIN Carvedilol (Carvedilol 12.5 Mg Tablet) 12.5 mg PO BID [facility]; Protocol Last Admin: 08/23/22 08:58 Dose: 12.5 mg Documented By: KRISTIN Comments: Provider ordered to administer Clonazepam (Clonazepam 1 Mg Tablet) 0.25 mg PO BEDTIME [facility] Last Admin: 08/23/22 01:32 Dose: 0.25 mg Documented By: JOSE EDUARDO Clonidine HCl (Clonidine Hcl 0.1 Mg Tablet) 0.1 mg PO BID [facility]; Protocol Last Admin: 08/23/22 08:58 Dose: 0.1 mg Documented By: KRISTIN Furosemide (Furosemide 40 Mg Tablet) 40 mg PO DAILY [facility]; Protocol Last Admin: 08/23/22 08:58 Dose: 40 mg Documented By: KRISTIN Gabapentin (Gabapentin 300 Mg Capsule) 300 mg PO BEDTIME [facility] Last Admin: 08/23/22 01:33 Dose: 300 mg Documented By: JOSE EDUARDO Hydralazine HCl (Hydralazine Hcl 25 Mg Tablet) 25 mg PO TID [facility]; Protocol Last Admin: 08/23/22 08:59 Dose: 25 mg Documented By: KRISTIN Isosorbide Mononitrate (Isosorbide Mononitrate 60 Mg Tab.Er.24h) 60 mg PO DAILY [facility]; Protocol Last Admin: 08/23/22 08:58 Dose: 60 mg Documented By: KRISTIN Losartan Potassium (Losartan Potassium 50 Mg Tablet) 50 mg PO DAILY [facility]; Protocol Last Admin: 08/23/22 08:59 Dose: 50 mg Documented By: KRISTIN Melatonin (Melatonin 3 Mg Tablet) 6 mg PO BEDTIME PRN PRN Reason: Insomnia Last Admin: 08/23/22 01:33 Dose: 6 mg Documented By: JOSE EDUARDO Ondansetron HCl (Ondansetron Hcl 4 Mg/2 Ml Vial) 4 mg IVPUSH Q8H PRN PRN Reason: Nausea and Vomiting Quetiapine Fumarate (Quetiapine Fumarate 25 Mg Tablet) 25 mg PO DAILY [facility] Last Admin: 08/23/22 08:59 Dose: 25 mg Documented By: KRISTIN Sodium Chloride (0.9 % Sodium Chloride Flush 3 Ml Syringe) 3 ml IVFLUSH QSHIFT [facility] Last Admin: 08/23/22 09:02 Dose: 3 ml Documented By: KRISTIN Labs CBC & Chem 7: 08/22/22 21:06 08/22/22 20:12 Labs: Laboratory Results - last 24 hr 08/22/22 08/22/22 08/22/22 20:12 20:12 21:06 MCV 82.6 MCH 26.2 L MCHC 31.7 RDW 14.6 Plt Count 374 MPV 8.7 L Immature Gran % (Auto) 0.4 Neut % (Auto) 59.0 Lymph % (Auto) 25.2 [place] % (Auto) 11.8 H Eos % (Auto) 3.1 Baso % (Auto) 0.5 Lymph # (Auto) 2.1 [place] # (Auto) 1.0 Eos # (Auto) 0.3 Baso # (Auto) 0.0 Abs Immat Gran (auto) 0.03 Absolute Neuts (auto) 4.9 Absolute Nucleated RBC 0.000 Nucleated RBC % (auto) 0.0 PT Cancelled INR Cancelled APTT Cancelled Anion Gap 18 Estim Creat Clear Calc 38.6 Estimated GFR 49 Random Glucose 108 Calcium 9.3 D Total Bilirubin 0.3 AST 27 ALT 19 Alkaline Phosphatase 99 Troponin I High Sens B-Natriuretic Peptide Total Protein 7.7 Albumin 3.4 L COVID-19 ([facility]) COVID-19 Clin Com 08/22/22 08/22/22 21:06 23:37 MCV MCH MCHC RDW Plt Count MPV Immature Gran % (Auto) Neut % (Auto) Lymph % (Auto) [place] % (Auto) Eos % (Auto) Baso % (Auto) Lymph # (Auto) [place] # (Auto) Eos # (Auto) Baso # (Auto) Abs Immat Gran (auto) Absolute Neuts (auto) Absolute Nucleated RBC Nucleated RBC % (auto) PT INR APTT Anion Gap Estim Creat Clear Calc Estimated GFR Random Glucose Calcium Total Bilirubin AST ALT Alkaline Phosphatase Troponin I High Sens 8.6 B-Natriuretic Peptide 228 H Total Protein Albumin COVID-19 ([facility]) Positive A COVID-19 Clin Com See Note Assessment and Plan (1) HTN (hypertension): Status: Acute Plan This is a 82-year-old female with a pertinent history of permanent atrial fibrillation on Eliquis, dementia, essential hypertension, congestive heart failure, coronary artery disease status post CABG, peripheral vascular disease status post fem-pop bypass who was sent by patient's care facility for evaluation of syncope. Syncope, recurrent unclear etiology.? Obtain orthostatic vital signs.? Will admit patient on media monitor to rule out cardiogenic etiology.? transthoracic echocardiogram to delineate valve anatomy.. Atrial fibrillation on Eliquis rate controlled in the ER.? Patient is on 2.5 mg b.i.d. Unclear why patient is on reduced dose, does qualify for full-dose as patient is greater than 60 kg and serum creatinine is less than 1.5. Essential hypertension continue amlodipine, losartan normocytic anemia. chronic No bleeding stable Covid 19. dx 08/11/22 Treated with Paxlovid for 5 days Asymptomatic Congestive heart failure, unspecified currently compensated.? Obtaining echo as above. continue home p.o. medications including hydralazine, carvedilol, clonidine, amlodipine, losartan, Lasix and isosorbide Coronary artery disease status post CABG BB Peripheral vascular disease status post fem-pop bypass not on antiplatelet therapy.? statin Dementia with behavioral disturbance continue Klonopin and quetiapine DVT prophylaxis: On Eliquis Attending Dr. Osuna Full code Quality Stroke Does the patient have a stroke diagnosis?: No VTE Prior VTE?: No VTE Risk Level:: Medical - moderate - high VTE Device Contraindication: Treatment Not Indicated VTE Drug Contraindication: N/A - Med Ordered
--- NOTE | 2022-08-23 16:26 | MHC.CM.PN ---
Lives at [place] ([facility] Owns rolling walker, does not drive. Nephew indicates over past month she has functionally declined and is not able to functionally care for self at this time. ? PT eval prior to D/C for safe D/C recommendations; nephew informed. If returns to home, may need services, did not have any prior to [facility] admit. CM to follow.
[2022-08-24] VITALS (8 sets, daily range): BP systolic 130–166; BP diastolic 42–98; PULSE 60–97; RESP 16–20; TEMP 36.1–37.2; O2SAT 95–98
[2022-08-24] MEDS: 0.9 % Sodium Chloride Flush 3 ML SYRINGE IVFLUSH ×3 (01:05→21:04)
[2022-08-24 07:49] LABS: Hematocrit 29.7 % (37.0-47.0); Hemoglobin 9.3 g/dl (12.0-16.0); Mean Corpuscular HGB Conc 31.3 g/dl (31.0-35.0); Mean Corpuscular Hemoglobin 26.2 pg (27.0-33.0); Mean Corpuscular Volume 83.7 fL (80.0-98.0); Mean Platelet Volume 8.4 fL (9.4-12.3); Platelet Count 487 X10*3/uL (160-400); Red Blood Count 3.55 X10*6/uL (4.20-5.50); Red Cell Distribution Width 14.5 % (11.0-16.0); White Blood Count 7.3 X10*3/uL (4.8-10.8)
[2022-08-24 08:06] LABS: Estimated Average Glucose 105 mg/dL; Hemoglobin A1c % 5.3 %
[2022-08-24 08:20] LABS: Iron 45 mcg/dL (30-160); Percent Iron Saturation 20 % (15-50); Total Iron Binding Capacity 228 mcg/dL (228-428); Unsaturated Iron Binding 183 ug/dL
[2022-08-24 08:27] LABS: Anion Gap 16 (12-20); Blood Urea Nitrogen 16 mg/dL (9-16); Calcium 9.7 mg/dL (8.4-10.2); Carbon Dioxide 30 mmol/L (22-29); Chloride 100 mmol/L (96-108); Creatinine Clr Calc Pharmacy 45.8; Estimated Glomerular Filt Rate > 60; Glucose Random 91 mg/dL (60-115); Sodium 142 mmol/L (135-145)
[2022-08-24 08:34] LABS: Thyroid Stimulating Hormone 4.09 uIU/mL (0.32-4.0)
--- NOTE | 2022-08-24 09:50 | HO.PM.IMPN ---
Subjective Subjective Date of Service: 08/24/22 Review of Systems Follow up Covid 19, Syncope Denies pain, difficult to assess due to dementia Physical Exam Vital Signs: Vital Signs: Last Vital Signs Temp 96.9 F 08/24/22 07:54 Pulse 97 08/24/22 07:54 Resp 18 08/24/22 07:54 BP 136/72 08/24/22 07:54 Pulse Ox 96 08/24/22 07:54 O2 Del Method 08/24/22 07:54 O2 Flow Rate 91 08/23/22 09:21 BMI result Body Mass Index 34.4 Appearing in no acute distress lung sounds are clear to auscultation heart regular rate rhythm, clear S1, S2 positive bowel sounds, abdomen is soft, nontender neuro patient is alert, confused Objective Data Active Medications Acetaminophen (Acetaminophen 325 Mg Tablet) 650 mg PO Q6H PRN PRN Reason: Pain, Mild (Pain Scale 1-3) Last Admin: 08/23/22 01:34 Dose: 650 mg Documented By: JOSE EDUARDO Amlodipine Besylate (Amlodipine Besylate 2.5 Mg Tablet) 2.5 mg PO DAILY [facility]; Protocol Last Admin: 08/23/22 08:59 Dose: 2.5 mg Documented By: KRISTIN Apixaban (Apixaban 2.5 Mg Tablet) 2.5 mg PO BID [facility] Last Admin: 08/23/22 21:58 Dose: 2.5 mg Documented By: FAVIAN Atorvastatin Calcium (Atorvastatin Calcium 40 Mg Tablet) 40 mg PO DAILY [facility] Last Admin: 08/23/22 08:58 Dose: 40 mg Documented By: KRISTIN Carvedilol (Carvedilol 12.5 Mg Tablet) 12.5 mg PO BID [facility]; Protocol Last Admin: 08/23/22 21:59 Dose: 12.5 mg Documented By: FAVIAN Clonazepam (Clonazepam 1 Mg Tablet) 0.25 mg PO BEDTIME [facility] Last Admin: 08/23/22 21:59 Dose: 0.25 mg Documented By: FAVIAN Clonidine HCl (Clonidine Hcl 0.1 Mg Tablet) 0.1 mg PO BID [facility]; Protocol Last Admin: 08/23/22 21:59 Dose: 0.1 mg Documented By: FAVIAN Furosemide (Furosemide 40 Mg Tablet) 40 mg PO DAILY [facility]; Protocol Last Admin: 08/23/22 08:58 Dose: 40 mg Documented By: KRISTIN Gabapentin (Gabapentin 300 Mg Capsule) 300 mg PO BEDTIME [facility] Last Admin: 08/23/22 21:59 Dose: 300 mg Documented By: FAVIAN Hydralazine HCl (Hydralazine Hcl 25 Mg Tablet) 25 mg PO TID [facility]; Protocol Last Admin: 08/23/22 21:59 Dose: 25 mg Documented By: FAVIAN Isosorbide Mononitrate (Isosorbide Mononitrate 60 Mg Tab.Er.24h) 60 mg PO DAILY [facility]; Protocol Last Admin: 08/23/22 08:58 Dose: 60 mg Documented By: KRISTIN Losartan Potassium (Losartan Potassium 50 Mg Tablet) 50 mg PO DAILY [facility]; Protocol Last Admin: 08/23/22 08:59 Dose: 50 mg Documented By: KRISTIN Melatonin (Melatonin 3 Mg Tablet) 6 mg PO BEDTIME PRN PRN Reason: Insomnia Last Admin: 08/23/22 01:33 Dose: 6 mg Documented By: JOSE EDUARDO Ondansetron HCl (Ondansetron Hcl 4 Mg/2 Ml Vial) 4 mg IVPUSH Q8H PRN PRN Reason: Nausea and Vomiting Quetiapine Fumarate (Quetiapine Fumarate 25 Mg Tablet) 25 mg PO DAILY [facility] Last Admin: 08/23/22 08:59 Dose: 25 mg Documented By: KRISTIN Sodium Chloride (0.9 % Sodium Chloride Flush 3 Ml Syringe) 3 ml IVFLUSH QSHIFT [facility] Last Admin: 08/24/22 01:05 Dose: 3 ml Documented By: VICENTE Labs CBC & Chem 7: 08/24/22 07:19 08/24/22 07:19 Labs: Laboratory Results - last 24 hr 08/24/22 08/24/22 08/24/22 07:19 07:19 07:19 MCV 83.7 MCH 26.2 L MCHC 31.3 RDW 14.5 Plt Count 487 H D MPV 8.4 L Absolute Nucleated RBC 0.000 Nucleated RBC % (auto) 0.0 Anion Gap Estim Creat Clear Calc Estimated GFR Random Glucose Estimat Average Glucose 105 Hemoglobin A1c % 5.3 Calcium Iron 45 TIBC 228 % Saturation 20 Unsat Iron Binding 183 TSH 4.09 H 08/24/22 07:19 MCV MCH MCHC RDW Plt Count MPV Absolute Nucleated RBC Nucleated RBC % (auto) Anion Gap 16 Estim Creat Clear Calc 45.8 Estimated GFR > 60 Random Glucose 91 Estimat Average Glucose Hemoglobin A1c % Calcium 9.7 Iron TIBC % Saturation Unsat Iron Binding TSH Assessment and Plan (1) HTN (hypertension): Status: Acute Plan 82-year-old female with a pertinent history of permanent atrial fibrillation on Eliquis, dementia, essential hypertension, congestive heart failure, coronary artery disease status post CABG, peripheral vascular disease status post fem-pop bypass who was sent by patient's care facility for evaluation of syncope. Syncope, recurrent unclear etiology.? Obtain orthostatic vital signs.? transthoracic echocardiogram pending No arrythmia on tele other than Afib Atrial fibrillation on Eliquis rate controlled in the ER.? Patient is on 2.5 mg b.i.d. Unclear why patient is on reduced dose, does qualify for full-dose as patient is greater than 60 kg and serum creatinine is less than 1.5, will increase to normal dosing Essential hypertension continue amlodipine, losartan normocytic anemia. chronic No bleeding stable Covid 19. dx 08/11/22 Treated with Paxlovid for 5 days Asymptomatic Congestive heart failure, unspecified currently compensated.? Obtaining echo as above. continue home p.o. medications including hydralazine, carvedilol, clonidine, amlodipine, losartan, Lasix and isosorbide Coronary artery disease status post CABG BB Peripheral vascular disease status post fem-pop bypass not on antiplatelet therapy.? statin Dementia with behavioral disturbance continue Klonopin and quetiapine DVT prophylaxis: On Eliquis Attending Dr. Osuna Full code Quality Stroke Does the patient have a stroke diagnosis?: No VTE Prior VTE?: No VTE Risk Level:: Medical - moderate - high VTE Device Contraindication: Treatment Not Indicated VTE Drug Contraindication: N/A - Med Ordered
[2022-08-24] MEDS: amLODIPine Besylate 2.5 MG TABLET PO (10:21)
[2022-08-24] MEDS: Furosemide 40 MG TABLET PO (10:21)
[2022-08-24] MEDS: carvediloL 12.5 MG TABLET PO ×2 (10:21→21:01)
[2022-08-24] MEDS: hydrALAZINE HCl 25 MG TABLET PO ×3 (10:22→21:01)
[2022-08-24] MEDS: QUEtiapine Fumarate 25 MG TABLET PO (10:22)
[2022-08-24] MEDS: Isosorbide Mononitrate 60 MG TAB.ER.24H PO (10:22)
[2022-08-24] MEDS: Apixaban 2.5 MG TABLET PO (10:22)
[2022-08-24] MEDS: cloNIDine HCL 0.1 MG TABLET PO ×2 (10:22→21:02)
[2022-08-24] MEDS: Losartan Potassium 50 MG TABLET PO (10:22)
[2022-08-24] MEDS: Atorvastatin Calcium 40 MG TABLET PO (10:25)
[2022-08-24 10:54] LABS: Free T4 (Free Thyroxine) 1.47 ng/dL (0.71-1.85)
--- NOTE | 2022-08-24 17:42 | PC.NURSE ---
Per provider, assessed orthostatic blood pressure at 1700. In a lying position, pt's BP was 139/85. Then in a sitting position at side of bed, pt's BP was 166/98. Pt was unable to safely stand with a two assist to record a standing BP.
[2022-08-24] MEDS: Gabapentin 300 MG CAPSULE PO (21:01)
[2022-08-24] MEDS: Apixaban 5 MG TABLET PO (21:02)
[2022-08-24] MEDS: clonazePAM 1 MG TABLET 0.25 MG PO (21:07)
[2022-08-25] VITALS: BP 137/70; PULSE 78; RESP 20; TEMP 36.9; O2SAT 97
[2022-08-25 04:00] VITALS: BP 145/67; PULSE 69; RESP 16; TEMP 36.1; O2SAT 97
[2022-08-25 07:36] VITALS: BP 142/62; PULSE 67; RESP 20; TEMP 36.1; O2SAT 96
[2022-08-25 08:00] LABS: Hematocrit 28.9 % (37.0-47.0); Hemoglobin 9.9 g/dl (12.0-16.0); Mean Corpuscular HGB Conc 34.3 g/dl (31.0-35.0); Mean Corpuscular Hemoglobin 26.9 pg (27.0-33.0); Mean Corpuscular Volume 78.5 fL (80.0-98.0); NRBC Pct Auto 0.2 /100WBC (0.0-0.2); PLT CLUMP 1; Red Blood Count 3.68 X10*6/uL (4.20-5.50); Red Cell Distribution Width 14.1 % (11.0-16.0)
[2022-08-25 08:01] LABS: White Blood Count 8.7 X10*3/uL (4.8-10.8)
[2022-08-25 08:59] LABS: Folate 17.9 ng/mL (> or = 4.0); Vitamin B12 863 pg/mL (200-900)
--- NOTE | 2022-08-25 09:40 | PM.NEUROCN ---
History of Present Illness Data of Consult Service Date: 08/25/22 Primary Care Provider: [facility] HPI Reason for consult: Syncope 82 years old woman with underlying history of dementia was brought to hospital after she had a syncopal episode. Details were unclear and she was not able to provide any history. Apparently she was noted to be unresponsive or less responsive but there was no documentation of any convulsion or seizure-like activity. When I asked her why she was here she smiled and did not provide any details. When I ask her if she passed out she said yes but then could not tell me any further details. Review of Systems Review of Systems: Could not be reliably done with her. [facility] Past Medical History Medical History (Updated 08/25/22 @ 09:43 by Veronica Nunn MD) Atrial fibrillation CHF (congestive heart failure) Coronary artery disease Dementia HTN (hypertension) Peripheral vascular disease Surgical History Surgical History H/O mastectomy Hx of CABG S/P femoral-popliteal bypass surgery Social History Social History Household Members: Unknown / Unable to assess Housing: Unknown / Unable to assess Unable to assess alcohol history related to: Unable to respond Patient Tobacco Use Status: Tobacco use Unknown Use of substances other than those prescribed or required for medical reasons: Unknown Currently Displaying Signs/Symptoms of Drug Intoxication Withdrawal: No Advance Directives: No Advance Directives Information Provided: No Nutrition Risks: On aspiration precautions Patient : No : No service: No Current occupational status: retired [employer] Allergies Allergy/AdvReac Type Severity Reaction Status Date / Time No Known Allergies Allergy Verified 08/23/22 04:57 Active Medications: Current Medications Acetaminophen (Acetaminophen 325 Mg Tablet) 650 mg PO Q6H PRN PRN Reason: Pain, Mild (Pain Scale 1-3) Last Admin: 08/23/22 01:34 Dose: 650 mg Amlodipine Besylate (Amlodipine Besylate 2.5 Mg Tablet) 2.5 mg PO DAILY [facility]; Protocol Last Admin: 08/24/22 10:21 Dose: 2.5 mg Apixaban (Apixaban 5 Mg Tablet) 5 mg PO BID [facility] Last Admin: 08/24/22 21:02 Dose: 5 mg Atorvastatin Calcium (Atorvastatin Calcium 40 Mg Tablet) 40 mg PO DAILY [facility] Last Admin: 08/24/22 10:25 Dose: 40 mg Carvedilol (Carvedilol 12.5 Mg Tablet) 12.5 mg PO BID [facility]; Protocol Last Admin: 08/24/22 21:01 Dose: 12.5 mg Clonazepam (Clonazepam 1 Mg Tablet) 0.25 mg PO BEDTIME [facility] Last Admin: 08/24/22 21:07 Dose: 0.25 mg Clonidine HCl (Clonidine Hcl 0.1 Mg Tablet) 0.1 mg PO BID [facility]; Protocol Last Admin: 08/24/22 21:02 Dose: 0.1 mg Furosemide (Furosemide 40 Mg Tablet) 40 mg PO DAILY [facility]; Protocol Last Admin: 08/24/22 10:21 Dose: 40 mg Gabapentin (Gabapentin 300 Mg Capsule) 300 mg PO BEDTIME [facility] Last Admin: 08/24/22 21:01 Dose: 300 mg Hydralazine HCl (Hydralazine Hcl 25 Mg Tablet) 25 mg PO TID [facility]; Protocol Last Admin: 08/24/22 21:01 Dose: 25 mg Isosorbide Mononitrate (Isosorbide Mononitrate 60 Mg Tab.Er.24h) 60 mg PO DAILY [facility]; Protocol Last Admin: 08/24/22 10:22 Dose: 60 mg Losartan Potassium (Losartan Potassium 50 Mg Tablet) 50 mg PO DAILY [facility]; Protocol Last Admin: 08/24/22 10:22 Dose: 50 mg Melatonin (Melatonin 3 Mg Tablet) 6 mg PO BEDTIME PRN PRN Reason: Insomnia Last Admin: 08/23/22 01:33 Dose: 6 mg Ondansetron HCl (Ondansetron Hcl 4 Mg/2 Ml Vial) 4 mg IVPUSH Q8H PRN PRN Reason: Nausea and Vomiting Quetiapine Fumarate (Quetiapine Fumarate 25 Mg Tablet) 25 mg PO DAILY [facility] Last Admin: 08/24/22 10:22 Dose: 25 mg Sodium Chloride (0.9 % Sodium Chloride Flush 3 Ml Syringe) 3 ml IVFLUSH QSHIFT [facility] Last Admin: 08/24/22 21:04 Dose: 3 ml Home Medications Medication Instructions Recorded Confirmed Last Taken Type acetaminophen 325 mg tablet 650 mg PO Q8H PRN Pain 08/23/22 08/23/22 08/19/22 History albuterol sulfate 2.5 mg/3 mL 2.5 mg inhalation Q4H PRN 08/23/22 08/23/22 Unknown History (0.083 %) solution for nebulization Shortness Of Breath Or Wheezing amlodipine 2.5 mg tablet 2.5 mg PO BEDTIME 08/23/22 08/23/22 08/21/22 History apixaban 2.5 mg tablet (Eliquis) 2.5 mg PO BID 08/23/22 08/23/22 08/22/22 History atorvastatin 40 mg tablet 40 mg PO DAILY 08/23/22 08/23/22 08/21/22 History carvedilol 12.5 mg tablet 12.5 mg PO BID 08/23/22 08/23/22 08/22/22 History clonazepam 0.5 mg tablet 0.25 mg PO BEDTIME 08/23/22 08/23/22 08/21/22 History clonidine HCl 0.1 mg tablet 0.1 mg PO BID 08/23/22 08/23/22 08/22/22 History furosemide 40 mg tablet 40 mg PO DAILY 08/23/22 08/23/22 08/22/22 History gabapentin 300 mg capsule 300 mg PO BEDTIME 08/23/22 08/23/22 08/21/22 History hydralazine 25 mg tablet 25 mg PO QID 08/23/22 08/23/22 08/22/22 History ibuprofen 400 mg tablet 400 mg PO TID PRN Pain 08/23/22 08/23/22 08/21/22 History isosorbide mononitrate 60 mg 60 mg PO DAILY 08/23/22 08/23/22 08/22/22 History tablet,extended release 24 hr loperamide 2 mg tablet 2 mg PO DAILY PRN Loose Stool 08/23/22 08/23/22 Unknown History loperamide 2 mg tablet 4 mg PO BID PRN 5 loose stools 08/23/22 08/23/22 Unknown History losartan 50 mg tablet 50 mg PO DAILY 08/23/22 08/23/22 08/22/22 History magnesium 250 mg tablet 250 mg PO DAILY 08/23/22 08/23/22 08/22/22 History multivitamin 1 tab PO DAILY 08/23/22 08/23/22 08/22/22 History omeprazole 20 mg capsule,delayed 20 mg PO DAILY@0630 08/23/22 08/23/22 08/22/22 History release potassium chloride 10 mEq 10 meq PO DAILY 08/23/22 08/23/22 08/22/22 History capsule,extended release promethazine 25 mg rectal 25 mg RI Q6H PRN Vomiting 08/23/22 08/23/22 Unknown History suppository quetiapine 25 mg tablet 12.5 mg PO DAILY PRN Agitation 08/23/22 08/23/22 Unknown History quetiapine 25 mg tablet 25 mg PO DAILY 08/23/22 08/23/22 08/22/22 History quetiapine 50 mg tablet 50 mg PO DAILY@1400 08/23/22 08/23/22 08/22/22 History sennosides 8.6 mg tablet (Riri-kenneth) 17.2 mg PO DAILY 08/23/22 08/23/22 08/22/22 History Physical Exam Vital Signs: Vital Signs: Last Vital Signs Temp 97.0 F 08/25/22 07:36 Pulse 67 08/25/22 07:36 Resp 20 08/25/22 07:36 BP 142/62 H 08/25/22 07:36 Pulse Ox 96 08/25/22 07:36 O2 Del Method 08/25/22 07:36 O2 Flow Rate 91 08/23/22 09:21 BMI result Body Mass Index 34.4 Neuro: Other: Decreased spontaneity and fluency of speech. She was following some one-step commands. She was alert and awake smiling made eye contact. She was not in any distress. Visual murphy are full to threat. Face was symmetrical. There was no obvious focal arm or leg weakness. Deep tendon reflexes were absent with flexor plantars. There was no abnormal posturing. Results Labs CBC & Chem 7: 08/25/22 07:24 08/24/22 07:19 Labs: Short CBC 08/25/22 Range/Units 07:24 WBC 8.7 (4.8-10.8) X10*3/uL Hgb 9.9 L (12.0-16.0) g/dl Hct 28.9 L (37.0-47.0) % Plt Count TNP Microbiology Microbiology Results: Noncontrast head CT revealed moderate to severe diffuse cerebral and cerebellar cortical and central atrophy and moderate to severe chronic microvascular ischemic changes. 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 She was here with complaints of passing out but unable to provide any meaningful history and details from witnesses were also not available. Etiology of passing out was unclear. This type of patient were at risk for seizure disorder. Sometime infection or even deep sleep can not look like unresponsiveness for patients like her. If no other etiology is found, consider an electroencephalogram which could be done when her COVID related quarantine was over. Alternatively, decisions about seizure can be made on clinical grounds. At least for now I do not recommend any antiepileptic. If any further episode occurs, precise details might help to figure out the cause. Finally, she seem to suffer from moderate to severe dementia and workup and investigations should be balance with her lack of full consent and prognosis (2) Multifactorial dementia: Status: Acute Procedures Date of Service Date of Service: 08/25/22
[2022-08-25 10:00] VITALS: BP 135/62; PULSE 87
--- NOTE | 2022-08-25 10:38 | HO.PM.IMPN ---
Subjective Subjective Date of Service: 08/25/22 Review of Systems Follow up Covid 19, Syncope Denies pain, difficult to assess due to dementia Physical Exam Vital Signs: Vital Signs: Last Vital Signs Temp 97.0 F 08/25/22 07:36 Pulse 67 08/25/22 07:36 Resp 20 08/25/22 07:36 BP 142/62 H 08/25/22 07:36 Pulse Ox 96 08/25/22 07:36 O2 Del Method 08/25/22 07:36 O2 Flow Rate 91 08/23/22 09:21 BMI result Body Mass Index 34.4 Appearing in no acute distress lung sounds are clear to auscultation heart regular rate rhythm, clear S1, S2 positive bowel sounds, abdomen is soft, nontender neuro patient is alert, pleasantly confused Objective Data Active Medications Acetaminophen (Acetaminophen 325 Mg Tablet) 650 mg PO Q6H PRN PRN Reason: Pain, Mild (Pain Scale 1-3) Last Admin: 08/23/22 01:34 Dose: 650 mg Documented By: JOSE EDUARDO Amlodipine Besylate (Amlodipine Besylate 2.5 Mg Tablet) 2.5 mg PO DAILY [facility]; Protocol Last Admin: 08/24/22 10:21 Dose: 2.5 mg Documented By: DEJA Apixaban (Apixaban 5 Mg Tablet) 5 mg PO BID [facility] Last Admin: 08/24/22 21:02 Dose: 5 mg Documented By: AIDEE Atorvastatin Calcium (Atorvastatin Calcium 40 Mg Tablet) 40 mg PO DAILY [facility] Last Admin: 08/24/22 10:25 Dose: 40 mg Documented By: DEJA Carvedilol (Carvedilol 12.5 Mg Tablet) 12.5 mg PO BID [facility]; Protocol Last Admin: 08/24/22 21:01 Dose: 12.5 mg Documented By: AIDEE Clonazepam (Clonazepam 1 Mg Tablet) 0.25 mg PO BEDTIME [facility] Last Admin: 08/24/22 21:07 Dose: 0.25 mg Documented By: AIDEE Clonidine HCl (Clonidine Hcl 0.1 Mg Tablet) 0.1 mg PO BID [facility]; Protocol Last Admin: 08/24/22 21:02 Dose: 0.1 mg Documented By: AIDEE Furosemide (Furosemide 40 Mg Tablet) 40 mg PO DAILY [facility]; Protocol Last Admin: 08/24/22 10:21 Dose: 40 mg Documented By: DEJA Gabapentin (Gabapentin 300 Mg Capsule) 300 mg PO BEDTIME [facility] Last Admin: 08/24/22 21:01 Dose: 300 mg Documented By: AIDEE Hydralazine HCl (Hydralazine Hcl 25 Mg Tablet) 25 mg PO TID [facility]; Protocol Last Admin: 08/24/22 21:01 Dose: 25 mg Documented By: AIDEE Isosorbide Mononitrate (Isosorbide Mononitrate 60 Mg Tab.Er.24h) 60 mg PO DAILY [facility]; Protocol Last Admin: 08/24/22 10:22 Dose: 60 mg Documented By: DEJA Losartan Potassium (Losartan Potassium 50 Mg Tablet) 50 mg PO DAILY [facility]; Protocol Last Admin: 08/24/22 10:22 Dose: 50 mg Documented By: DEJA Melatonin (Melatonin 3 Mg Tablet) 6 mg PO BEDTIME PRN PRN Reason: Insomnia Last Admin: 08/23/22 01:33 Dose: 6 mg Documented By: JOSE EDUARDO Ondansetron HCl (Ondansetron Hcl 4 Mg/2 Ml Vial) 4 mg IVPUSH Q8H PRN PRN Reason: Nausea and Vomiting Quetiapine Fumarate (Quetiapine Fumarate 25 Mg Tablet) 25 mg PO DAILY [facility] Last Admin: 08/24/22 10:22 Dose: 25 mg Documented By: DEJA Sodium Chloride (0.9 % Sodium Chloride Flush 3 Ml Syringe) 3 ml IVFLUSH QSHIFT [facility] Last Admin: 08/24/22 21:04 Dose: 3 ml Documented By: AIDEE Labs CBC & Chem 7: 08/25/22 07:24 08/25/22 10:59 Labs: Laboratory Results - last 24 hr 08/24/22 08/24/22 08/25/22 07:19 07:19 07:24 MCV 78.5 L D MCH 26.9 L MCHC 34.3 RDW 14.1 Plt Count TNP MPV TNP Absolute Nucleated RBC 0.020 H Nucleated RBC % (auto) 0.2 Vitamin B12 863 Folate 17.9 Free T4 1.47 Assessment and Plan (1) HTN (hypertension): Status: Acute Plan 82-year-old female with a pertinent history of permanent atrial fibrillation on Eliquis, dementia, essential hypertension, congestive heart failure, coronary artery disease status post CABG, peripheral vascular disease status post fem-pop bypass who was sent by patient's care facility for evaluation of syncope. Syncope, recurrent. No further episodes during hospitalization unclear etiology.? Negative orthostatic blood pressures No arrhythmia on telemetry other than atrial fibrillation Echocardiogram pending Seen and evaluated by Neurology with recommendation to consider EEG as an outpatient if further episodes of this unresponsiveness occur. No recommendation for antiepileptics at this time Atrial fibrillation, paroxysmal on Eliquis rate controlled in the ER.? Patient is on 2.5 mg b.i.d. according to patient's PCP and had been reduced due to previous history of GI bleed, does qualify for full-dose as patient is greater than 60 kg and serum creatinine is less than 1.5, will increase to normal dosing Essential hypertension continue amlodipine, losartan normocytic anemia. chronic No bleeding stable Covid 19. dx 08/11/22 Treated with Paxlovid for 5 days Asymptomatic Congestive heart failure, unspecified currently compensated.? Obtaining echo as above. continue home p.o. medications including hydralazine, carvedilol, clonidine, amlodipine, losartan, Lasix and isosorbide Coronary artery disease status post CABG BB Peripheral vascular disease status post fem-pop bypass not on antiplatelet therapy.? statin Dementia with behavioral disturbance continue Klonopin and quetiapine DVT prophylaxis: On Eliquis Attending Dr. Espinal Full code Disposition plan for transfer back to [facility] vs STR Continue hospitalization for treatment of COVID-19 and weakness, pending physical therapy evaluation Quality Stroke Does the patient have a stroke diagnosis?: No VTE Prior VTE?: No VTE Risk Level:: Medical - moderate - high VTE Device Contraindication: Treatment Not Indicated VTE Drug Contraindication: N/A - Med Ordered
[2022-08-25] MEDS: hydrALAZINE HCl 25 MG TABLET PO (10:43)
[2022-08-25] MEDS: carvediloL 12.5 MG TABLET PO (10:43)
[2022-08-25] MEDS: cloNIDine HCL 0.1 MG TABLET PO (10:44)
[2022-08-25] MEDS: Isosorbide Mononitrate 60 MG TAB.ER.24H PO (10:44)
[2022-08-25] MEDS: Atorvastatin Calcium 40 MG TABLET PO (10:44)
[2022-08-25] MEDS: QUEtiapine Fumarate 25 MG TABLET PO (10:44)
[2022-08-25] MEDS: Losartan Potassium 50 MG TABLET PO (10:44)
[2022-08-25] MEDS: amLODIPine Besylate 2.5 MG TABLET PO (10:44)
[2022-08-25] MEDS: Furosemide 40 MG TABLET PO (10:44)
[2022-08-25] MEDS: Apixaban 5 MG TABLET PO (10:44)
[2022-08-25] MEDS: 0.9 % Sodium Chloride Flush 3 ML SYRINGE IVFLUSH ×2 (10:56→21:45)
[2022-08-25 11:33] VITALS: BP 137/61; PULSE 70; RESP 20; TEMP 36.9; O2SAT 96
[2022-08-25 11:38] LABS: Anion Gap 19 (12-20); Blood Urea Nitrogen 23 mg/dL (9-16); Calcium 9.6 mg/dL (8.4-10.2); Carbon Dioxide 26 mmol/L (22-29); Chloride 100 mmol/L (96-108); Creatinine Clr Calc Pharmacy 29.2; Estimated Glomerular Filt Rate 36; Glucose Random 90 mg/dL (60-115); Potassium 4.2 mmol/L (3.3-5.1); Sodium 141 mmol/L (135-145)
--- NOTE | 2022-08-25 14:21 | MHC.CM.PN ---
Per MD rounds AN ECHO, PT eval and Neuro consult planned today. PT did not get the patient OOB. Spoke with [place] staff. Patient tested Covid+ 08/10/22. He mobility has declined since then. Plan for PT to work with the patient tomorrow. DP STR vs Return to [facility] with PT . Patient will travel via S.
[2022-08-25] MEDS: 0.9 % Sodium Chloride 1,000 ML 100 ML IVCONT (15:37)
[2022-08-25 23:49] VITALS: BP 146/72; PULSE 68; RESP 18; TEMP 37.1; O2SAT 96
[2022-08-26] MEDS: 0.9 % Sodium Chloride 1,000 ML 100 ML IVCONT ×2 (00:55→11:54)
[2022-08-26 03:41] VITALS: BP 138/76; PULSE 53; RESP 20; TEMP 36.9; O2SAT 98
--- NOTE | 2022-08-26 07:00 | CA_ITS ---
Transthoracic Echocardiogram Patient (Last, First, Middle): May Garrison, Gender: Female Date of : 1940 Age: 82 Procedure Date: 08/26/2022 Procedure Type: Transthoracic Echocardiogram Location: [facility] Height: 152.4 cm Weight: 79.83 kg BSA: 1.77 m2 Heart Rate: bpm BP: 145 / 67 mmHg [employer]: Referring MD: Karri Rubio MD Symptoms: syncope Study Quality: Adequate ECG Rhythm: Atrial Fibrillation Conclusions: - Normal left ventricular size and systolic function. There is severely increased left ventricular wall thickness. The visually estimated ejection fraction is between 55-60%. - Normal right ventricular cavity size. There is mildly decreased right ventricular systolic function. - The left atrium is severely dilated. - There is moderate calcification of the aortic valve. - There is mild to moderate aortic valve stenosis. - There is moderate mitral annular calcification. There is mild mitral valve regurgitation. - The inferior vena cava is collapsed, consistent with reduced intravascular volume and collapses greater than 50% with inspiration. Findings Left Ventricle Normal left ventricular size and systolic function. There is severely increased left ventricular wall thickness. The visually estimated ejection fraction is between 55-60%. There is no evidence of regional wall motion abnormalities. Diastolic function is indeterminate on the basis of available data. Right Ventricle Normal right ventricular cavity size. There is mildly decreased right ventricular systolic function. Atria The left atrium is severely dilated. Aortic Valve There is moderate calcification of the aortic valve. There is moderate thickening of the aortic valve. There is mild to moderate aortic valve stenosis. The peak aortic velocity is 2.17 m/s. The aortic valve area is 1.26 cm2. There is no aortic valve regurgitation. Mitral Valve There is moderate mitral annular calcification. There is mild mitral valve regurgitation. There is no mitral valve stenosis. Pulmonic Valve The pulmonic valve was not well visualized. Tricuspid Valve The tricuspid valve was not well visualized. There is mild to moderate tricuspid valve regurgitation. Low right atrial pressure. There is no evidence of pulmonary hypertension. Great Vessels All visible segments of the aorta are normal in size. The pulmonary artery was not well visualized. Venous The inferior vena cava is collapsed, consistent with reduced intravascular volume and collapses greater than 50% with inspiration. Pericardium/Pleural There is no evidence of pericardial effusion. Prior Study Comparison Changes noted compared to prior study dated: 08/02/2020. Severe LVH. Mild to moderate (gradients lower probably due to low filling state), small IVC size. Measurements 2D Linear Measurements IVSd: 1.43 0.6-0.9/0.6-1.0 cm LVIDd: 3.71 3.9-5.3/4.2-5.9 cm LVIDd Index: 2.10 2.4-3.2/2.2-3.1 cm/m2 LVIDs: 2.27 2.0-3.6 cm LVPWd: 1.45 0.7-1.1 cm LA Diam: 4.30 2.7-3.8/3.0-4.0 cm LAIDs Index: 2.43 1.5-2.3 cm/m2 LV Mass: 244.53 67-162/88-224 g LV Mass Index: 138.15 43-95/49-115 g/m2 LVOT Diam: 2.00 3.0+(-)1.3 cm Mitral Valve MV Pk E: 1.14 MV Decel Time: 374.00 E'Lateral: 7.72 E'Medial: 4.13 E/E' Med: 27.60 E/E' Lat: 14.80 PHT: 109.00 MVA PHT: 2.02 Decel Sherman: 3.06 Aortic Valve AoV Pk Jeromy: 2.17 AoV Mn Jeromy: 1.38 AoV VTI: 0.44 AoV Pk Grad: 19.00 Aov Mn Grad: 9.00 GONZÁLEZ Cont.VTI: 1.26 LVOT LVOT Pk Jeromy: 0.77 LVOT Mn Jeromy: 0.50 LVOT VTI: 0.18 LVOT Pk Grad: 2.00 LVOT Mn Grad: 1.00 LVOT Diam: 2.00 LVOT Area: 3.14 Diastolic Function MV Pk E: 1.14 E'Medial: 4.13 E/E' Med: 27.60 E' Laterial: 7.72 E/E' Lat: 14.80 Right Ventricle TAPSE (mm): 16.60 TVS' Jeromy: 8.10 Tricuspid Valve TR Pk Jeromy: 2.68 TR Pk Grad: 29.00 RA Press: 3.00 RVSP: 32.00 Great Vessels Aorta Sinus of Valsalva: 2.70 2.0-3.5 cm Ao Asc: 2.80 2.1-3.4 cm Pulmonary Valve PV Pk Jeromy: 0.87 Peak PV Grad: 3.00 Updated in Other Vendor System with Status of Final Brody Mauro MD electronically signed on 08/26/2022 3:23:37 PM with status of Final
[2022-08-26 07:58] VITALS: PULSE 78; RESP 16; TEMP 36.5; O2SAT 98
[2022-08-26 08:55] VITALS: PULSE 78; O2SAT 98
[2022-08-26 09:10] LABS: Anion Gap 20 (12-20); Blood Urea Nitrogen 21 mg/dL (9-16); Carbon Dioxide 21 mmol/L (22-29); Chloride 104 mmol/L (96-108); Estimated Glomerular Filt Rate > 60; Glucose Random 82 mg/dL (60-115); Potassium 4.4 mmol/L (3.3-5.1); Sodium 141 mmol/L (135-145)
--- NOTE | 2022-08-26 09:35 | P.CDIC_ITS ---
CDI Concurrent Query Documentation Clarification: PHYSICIAN'S DOCUMENTATION REQUEST Date of Query: 08/26/22 0935 Patient Name: May Garrison Admit Date: 08/24/22 Dear Doctor, A review of the medical record indicates additional documentation may be needed. Please review below and update the documentation accordingly. Risk Factors/Clinical Indicators/Treatments BMI: 34.4 5' in height If possible, please provide an associated diagnosis related to the abnormal BMI, such as: For a BMI >= 30: * Overweight * Obesity * Due to excess calories * Drug induced * Due to other cause Use of terms such as suspected, likely, concern for, or probable (associated with a specific diagnosis that is being evaluated, monitored, or treated as if it exists) are acceptable and can be coded in the inpatient setting, when documented at the time of discharge. Thank you, Stephanie Beltrán [facility], CDIS Extension: [phone] Please use your independent medical judgment in providing your response. THIS QUERY IS PART OF THE PERMANENT MEDICAL RECORD Other Diagnosis: obese
[2022-08-26 11:21] LABS: Calcium 8.9 mg/dL (8.4-10.2)
[2022-08-26 11:42] VITALS: PULSE 86; RESP 16; O2SAT 96
[2022-08-26] MEDS: hydrALAZINE HCl 25 MG TABLET PO (11:45)
[2022-08-26] MEDS: amLODIPine Besylate 2.5 MG TABLET PO (11:46)
[2022-08-26] MEDS: Atorvastatin Calcium 40 MG TABLET PO (11:46)
[2022-08-26] MEDS: QUEtiapine Fumarate 25 MG TABLET PO (11:46)
[2022-08-26] MEDS: carvediloL 12.5 MG TABLET PO (11:46)
[2022-08-26] MEDS: cloNIDine HCL 0.1 MG TABLET PO (11:46)
[2022-08-26] MEDS: Apixaban 5 MG TABLET PO (11:46)
[2022-08-26] MEDS: Isosorbide Mononitrate 60 MG TAB.ER.24H PO (11:47)
[2022-08-26] MEDS: 0.9 % Sodium Chloride Flush 3 ML SYRINGE IVFLUSH (11:53)
--- NOTE | 2022-08-26 14:07 | MHC.CM.PN ---
IMM 08/26/22 DP after ECHO complete and read discharge to [facility](HOME) via BLS . Contact info provided to the patients Nurse for Nurse 2 Nurse Report.
--- NOTE | 2022-08-26 14:37 | PM.DS ---
DS: Providers Provider Date of Service: 08/26/22 Date of admission: 08/24/22 13:56 Primary care physician: [facility] Consults: 08/25/22 07:48 Consult to Neurology Routine Consulting Provider: [facility] Reason for consultation: syncope Has provider been notified: No Attending physician on discharge: Jf Espinal Discharging clinician: Flaquita Marquis DS: Diagnosis Discharge Diagnosis (1) HTN (hypertension): Status: Acute DS: Summary Hospital Course Hospital Course: HP as per admitting provider This is a 82-year-old female with a pertinent history of permanent atrial fibrillation on Eliquis, dementia, essential hypertension, congestive heart failure, coronary artery disease status post CABG, peripheral vascular disease status post fem-pop bypass who was sent by patient's care facility for evaluation of syncope.? Patient is pleasantly demented and is only oriented to self.? She is unable to provide any history at this time.? History was obtained from chart review as below: According to the note sent in from the patient's care facility, the patient was eating dinner and then had an episode of loss of consciousness.? The patient's provider, Dr. Reyes did call the emergency department and stated that the patient had a syncopal episode.? He stated that the patient similar syncopal episodes in the past.? He stated that the patient did not have any decreased oxygen saturations and no changes in her vital signs. Patient was seen in the emergency department on 10/13/2021 for syncopal episode while she was moving her bowels, at that time her diagnosis was vasovagal syncope.? The patient's friend, Jessica states the patient has been in bed recently and has had difficulty with her mobility for the past several weeks. ER physician spoke to nephjuan luis, Dr. Simeon Ferrara who is an cullet crusher and washer/tariff inspector and can be reached at .? He is concerned that his aunt has had multiple syncopal episodes and that she may be having any arrhythmia or heart block as the cause.? He requested admission for cardiac workup to rule out cardiogenic syncope . Syncope, recurrent.? No further episodes during hospitalization unclear etiology.? Negative orthostatic blood pressures No arrhythmia on telemetry other than atrial fibrillation Echocardiogram:Normal left ventricular size and systolic function. There is severely increased left ventricular wall thickness.? The visually estimated ejection fraction is between 55-60%.? There is no evidence of regional wall motion abnormalities.? Diastolic function is indeterminate on the basis of available data. Seen and evaluated by Neurology with recommendation to consider EEG as an outpatient if further episodes of this unresponsiveness occur.? No recommendation for antiepileptics at this time ISAURA likely from hypovolemia Resolved with IV fluids Atrial fibrillation, paroxysmal on Eliquis rate controlled in the ER.? Patient is on 2.5 mg b.i.d. according to patient's PCP and had been reduced due to previous history of GI bleed, does qualify for full-dose as patient is greater than 60 kg and serum creatinine is less than 1.5, will increase to normal dosing of 5mf BID Essential hypertension continue amlodipine, losartan normocytic anemia. chronic No bleeding stable Covid 19. dx 08/11/22 Treated with Paxlovid for 5 days Asymptomatic Congestive heart failure, unspecified currently compensated.? continue home p.o. medications including hydralazine, carvedilol, clonidine, amlodipine, losartan, Lasix and isosorbide Coronary artery disease status post CABG BB Peripheral vascular disease status post fem-pop bypass not on antiplatelet therapy.? statin Dementia with behavioral disturbance continue Klonopin and quetiapine Time Spent with Patient Time attestation: Total time spent providing and/or coordinating discharge services: Discharge coordination time: Greater than 30 minutes Quality: Safe Use of Opioids Does Pt have an Active Cancer Diagnosis on the Problem List?: No Quality: Stroke Does the patient have a stroke diagnosis?: No Physical Exam Vital Signs: Vital Signs: Last Vital Signs Temp 97.7 F 08/26/22 07:58 Pulse 86 08/26/22 11:42 Resp 16 08/26/22 11:42 BP 138/76 08/26/22 03:41 Pulse Ox 96 08/26/22 11:42 O2 Del Method 08/26/22 11:42 O2 Flow Rate 91 08/23/22 09:21 BMI result Body Mass Index 34.4 Appearing in no acute distress head is normocephalic atraumatic eyes pupils are PERRLA sclera is anicteric mouth throat mucous membranes are intact and moist neck is supple no lymphadenopathy, no JVD noted lung sounds are clear to auscultation heart regular rate rhythm, clear S1, S2 positive bowel sounds, abdomen is soft, nontender neuro patient is alert, confused DS: Data Data Completed and Pending Labs on day of discharge: Laboratory Results - last 24 hr 08/26/22 08:22 Sodium 141 Potassium 4.4 Chloride 104 Carbon Dioxide 21 L Anion Gap 20 BUN 21 H Creatinine 0.86 Estim Creat Clear Calc 48.0 Estimated GFR > 60 Random Glucose 82 Calcium 8.9 D Discharge Plan Discharge Anticipated Discharge Date/Time: 08/26/22 14:27 Patient Disposition: Home Health Service Discharge Diagnosis: Syncope Referrals: [facility] [Other] - 1 Week [place],[facility] [Primary Care Provider] - 1 Week Veronica Nunn MD [Physician] - None (as needed for further episodes of syncope ) Discharge Medications: New Eliquis 5 mg Tablet 5 mg PO BID Qty: 60 0RF Continued furosemide 40 mg Tablet 40 mg PO DAILY clonazepam 0.5 mg Tablet 0.25 mg PO BEDTIME Rx Instructions: administer 30 minutes before bedtime amlodipine 2.5 mg Tablet 2.5 mg PO BEDTIME losartan 50 mg Tablet 50 mg PO DAILY atorvastatin 40 mg Tablet 40 mg PO DAILY sennosides [Riri-kenneth] 8.6 mg Tablet 17.2 mg PO DAILY potassium chloride 10 mEq Capsule, Extended Release 10 meq PO DAILY clonidine HCl 0.1 mg Tablet 0.1 mg PO BID carvedilol 12.5 mg Tablet 12.5 mg PO BID Rx Instructions: must administer with a meal/food isosorbide mononitrate 60 mg Tablet Extended Release 24 Hr 60 mg PO DAILY omeprazole 20 mg Capsule,Delayed Release(Dr/Ec) 20 mg PO DAILY@0630 magnesium 250 mg Tablet 250 mg PO DAILY quetiapine 25 mg Tablet 25 mg PO DAILY hydralazine 25 mg Tablet 25 mg PO QID quetiapine 50 mg Tablet 50 mg PO DAILY@1400 quetiapine 25 mg Tablet 12.5 mg PO DAILY PRN (Reason: Agitation) gabapentin 300 mg Capsule 300 mg PO BEDTIME acetaminophen 325 mg Tablet 650 mg PO Q8H PRN (Reason: Pain) albuterol sulfate 2.5 mg /3 mL (0.083 %) Solution For Nebulization 2.5 mg INHALATION Q4H PRN (Reason: Shortness Of Breath Or Wheezing) promethazine 25 mg Suppository 25 mg VA Q6H PRN (Reason: Vomiting) Rx Instructions: For greater than 3 episodes of vomiting in short period of time/within 24 hrs loperamide 2 mg Tablet 4 mg PO BID PRN (Reason: 5 loose stools) Rx Instructions: do not exceed 8 mg/24 hrs loperamide 2 mg Tablet 2 mg PO DAILY PRN (Reason: Loose Stool) Rx Instructions: after each loose stool ibuprofen 400 mg Tablet 400 mg PO TID PRN (Reason: Pain) Rx Instructions: administer with food multivitamin Tablet 1 tab PO DAILY Discontinued Eliquis 2.5 mg Tablet 2.5 mg PO BID Discharge Orders: Discharge Order (Routine); Ordered 08/26/22 Ordered By: Flaquita Marquis Diet: Advance to usual diet Activity on Discharge: As tolerated Stand Alone Forms: Patient Portal Discharge page Care Plan Goals: No further episodes of syncope Health Concerns: Syncope Plan of Treatment: Follow-up with primary care provider as needed Take all medications as prescribed If any further episodes of syncope are noted you may follow-up with the neurologist for further workup Assessment: See discharge summary
[2022-08-26 15:09] VITALS: BP 137/64; PULSE 80; RESP 18; TEMP 36.7; O2SAT 98
--- NOTE | 2022-08-26 16:59 | PC.NURSE ---
1650-Patient discharged via EMS. Discharge info sent with patient.
== END 2022-08-26 16:50 | disposition home health service (06) | DRG 308 ==
LOC: HO.ED 22:03 → HO.EDOVER 23:21 → HO.IMC 08-23 14:34
PROVIDERS: Student in an Organized Health Care Education/Training Program; Admitting Provider Student in an Organized Health Care Education/Training Program; Emergency Provider Emergency Medicine Emergency Medical Services; Visit Provider Nurse Practitioner Acute Care
DX: I48.0 Paroxysmal atrial fibrillation (principal); U07.1 COVID-19; N17.9 Acute kidney failure, unspecified; F03.918 Unspecified dementia, unspecified severity, with other behavioral disturbance; I25.10 Atherosclerotic heart disease of native coronary artery without angina pectoris; E66.9 Obesity, unspecified; Z68.34 Body mass index [BMI] 34.0-34.9, adult; I11.0 Hypertensive heart disease with heart failure; R55 Syncope and collapse; E86.1 Hypovolemia; D64.9 Anemia, unspecified; I73.9 Peripheral vascular disease, unspecified; I50.9 Heart failure, unspecified; Z95.1 Presence of aortocoronary bypass graft; Z79.01 Long term (current) use of anticoagulants; Z79.899 Other long term (current) drug therapy
CPT/HCPCS: 36415; 70450; 71045; 80048; 80053; 82607; 82746; 83036; 83540; 83880; 84439; 84443; 84484; 85025; 85027; 87635; 93005; 93306; 93880; 97162; 99285; Q9957

== ENCOUNTER 2022-11-11 18:20 | Emergency (ER) | payer MEDICARE, OTHER, SELFPAY ==
--- NOTE | ~2022-11-11 | CT_ITS ---
EXAMINATION: CT HEAD WITHOUT CONTRAST CLINICAL INFORMATION: Altered mental status on Eliquis. COMPARISON: Head CT 08/22/2022. TECHNIQUE: Contiguous axial imaging was performed from the skull base to vertex without intravenous administration of contrast. This CT examination was performed using dose optimization techniques as appropriate, variously including the following: *Automated exposure control *Adjustment of mA and/or kV according to patient size (this includes techniques or standardized protocols for targeted exams where dose is matched to indication/reason for exam; i.e. extremities or head) *Use of iterative reconstruction technique DLP: 642 mGy-cm. FINDINGS: There is no intracranial hemorrhage, large infarction, or mass lesion. There is no extra-axial collection. There is mild degree of brain parenchymal volume loss with commensurate prominence of ventricles and sulci. Moderate chronic microangiopathic changes are seen within the white matter. The visualized paranasal sinuses and mastoid air cells are clear. CT/CT head/brain wo IV con IMPRESSION: No acute intracranial abnormality.
--- NOTE | 2022-11-11 18:34 | ED_ITS ---
HPI - Altered Mental Status General Chief Complaint: General Medical Stated Complaint: Lethargy Time Seen by Provider: 11/11/22 18:29 Source: EMS and RN notes reviewed Mode of arrival: EMS Limitations: altered mental status History of Present Illness HPI narrative: Patient's dementia atrial fibrillation paraplegic dependent on all ADLs usually alert and awake prior to dinner when staff went bring her for dinner patient was difficult to arouse heart rate was in 48 no vomiting or diarrhea by the time EMS reached patient back to normal Related Data Home Medications Medication Instructions Recorded Confirmed acetaminophen 325 mg tablet 650 mg PO Q8H PRN Pain 08/23/22 08/23/22 albuterol sulfate 2.5 mg/3 mL 2.5 mg inhalation Q4H PRN 08/23/22 08/23/22 (0.083 %) solution for nebulization Shortness Of Breath Or Wheezing amlodipine 2.5 mg tablet 2.5 mg PO BEDTIME 08/23/22 08/23/22 atorvastatin 40 mg tablet 40 mg PO DAILY 08/23/22 08/23/22 carvedilol 12.5 mg tablet 12.5 mg PO BID 08/23/22 08/23/22 clonazepam 0.5 mg tablet 0.25 mg PO BEDTIME 08/23/22 08/23/22 clonidine HCl 0.1 mg tablet 0.1 mg PO BID 08/23/22 08/23/22 furosemide 40 mg tablet 40 mg PO DAILY 08/23/22 08/23/22 gabapentin 300 mg capsule 300 mg PO BEDTIME 08/23/22 08/23/22 hydralazine 25 mg tablet 25 mg PO QID 08/23/22 08/23/22 ibuprofen 400 mg tablet 400 mg PO TID PRN Pain 08/23/22 08/23/22 isosorbide mononitrate 60 mg 60 mg PO DAILY 08/23/22 08/23/22 tablet,extended release 24 hr loperamide 2 mg tablet 2 mg PO DAILY PRN Loose Stool 08/23/22 08/23/22 loperamide 2 mg tablet 4 mg PO BID PRN 5 loose stools 08/23/22 08/23/22 losartan 50 mg tablet 50 mg PO DAILY 08/23/22 08/23/22 magnesium 250 mg tablet 250 mg PO DAILY 08/23/22 08/23/22 multivitamin 1 tab PO DAILY 08/23/22 08/23/22 omeprazole 20 mg capsule,delayed 20 mg PO DAILY@0630 08/23/22 08/23/22 release potassium chloride 10 mEq 10 meq PO DAILY 08/23/22 08/23/22 capsule,extended release promethazine 25 mg rectal 25 mg OR Q6H PRN Vomiting 08/23/22 08/23/22 suppository quetiapine 25 mg tablet 12.5 mg PO DAILY PRN Agitation 08/23/22 08/23/22 quetiapine 25 mg tablet 25 mg PO DAILY 08/23/22 08/23/22 quetiapine 50 mg tablet 50 mg PO DAILY@1400 08/23/22 08/23/22 sennosides 8.6 mg tablet (Riri-kenneth) 17.2 mg PO DAILY 08/23/22 08/23/22 Previous Rx's Medication Instructions Recorded apixaban 5 mg tablet (Eliquis) 5 mg PO BID #60 tabs 08/26/22 Allergies Allergy/AdvReac Type Severity Reaction Status Date / Time No Known Allergies Allergy Verified 08/23/22 04:57 Review of Systems Review of Systems: Yes all other systems are reviewed and are negative [facility] Past Medical History Medical History Atrial fibrillation CHF (congestive heart failure) Coronary artery disease Dementia HTN (hypertension) Multifactorial dementia Peripheral vascular disease Surgical History H/O mastectomy Hx of CABG S/P femoral-popliteal bypass surgery Social History Social History Household Members: Unknown / Unable to assess Housing: Unknown / Unable to assess Unable to assess alcohol history related to: Unable to respond Alcohol intake: never Patient Tobacco Use Status: Tobacco use Unknown Smoked in Last 30 Days: No Use of substances other than those prescribed or required for medical reasons: No Advance Directives: No Advance Directives Information Provided: No service: No Current occupational status: retired Physical Exam ED Vital Signs: Vital Signs - 24 hr 11/11/22 18:42 11/11/22 21:38 Temperature 98.3 F 98.3 F Pulse Rate 54 61 Respiratory Rate 18 13 Blood Pressure 171/88 H 142/53 H Pulse Oximetry 100 100 Oxygen Delivery Method Room Air Nasal Cannula Oxygen Flow Rate 2 BMI result Body Mass Index 29.9 Appearance: Alert. And awake. No acute distress. Eyes: PERRLA, No Nystagmus ENT: Pharynx normal. Oral Mucosa moist Neck: Normal inspection. Neck supple. CVS: Irregularly irregular heart Pulses normal. Respiratory: No respiratory distress. Equal air entry bilateral, no wheezing/rales/rhonchi Abdomen: Soft and nontender. Bowel sounds are present, no mass palpable, no CVA tenderness Skin: Skin warm and dry. Normal skin color. Normal skin turgor. Extremities: No lower extremity edema. No calf tenderness Neuro: Oriented X 1-2. Decreased movement of both lower extremities. Medical Decision Making Medical Decision Making [facility] Narrative: Patient had transient bradycardia with heart rate of 48 at nursing and weakness no pauses seen during stay in the ER patient did not lose consciousness patient on Coreg 12.5 mg twice daily advised to decrease the dose to 6.25 mg twice daily cause of transient weakness not very clear head CT is negative no seizure activity noticed and patient was normal when came to the ER no signs of infecti on labs are stable Lab Data [facility] Lab Attestation statement: I reviewed the patient's lab results. Result Diagrams: 11/11/22 21:17 11/11/22 21:17 Labs: Lab Results 11/11/22 11/11/22 11/11/22 Range/Units 21:17 21:17 21:17 WBC 8.2 (4.8-10.8) X10*3/uL RBC 3.28 L (4.20-5.50) X10*6/uL Hgb 8.9 L (12.0-16.0) g/dl Hct 28.5 L (37.0-47.0) % MCV 86.9 (80.0-98.0) fL MCH 27.1 (27.0-33.0) pg MCHC 31.2 (31.0-35.0) g/dl RDW 17.4 H (11.0-16.0) % Plt Count 314 D (160-400) X10*3/uL MPV 8.4 L (9.4-12.3) fL Immature Gran % (Auto) 0.4 (0.0-0.4) % Neut % (Auto) 58.5 (45-73) % Lymph % (Auto) 26.7 (20-40) % Cochran % (Auto) 8.9 (2-11) % Eos % (Auto) 4.8 H (0-4) % Baso % (Auto) 0.7 (0-2) % Lymph # (Auto) 2.2 (1.2-4.9) X10*3/uL Cochran # (Auto) 0.7 (0.1-1.2) X10*3/uL Eos # (Auto) 0.4 (0.0-0.4) X10*3/uL Baso # (Auto) 0.1 (0.0-0.2) X10*3/uL Abs Immat Gran (auto) 0.03 (0.00-0.03) X10*3/uL Absolute Neuts (auto) 4.8 (2.0-8.3) x10*3/uL Absolute Nucleated RBC 0.000 (0.0-0.012) X10*3/uL Nucleated RBC % (auto) 0.0 (0.0-0.2) /100WBC PT 15.4 H (10.0-13.1) SEC INR 1.3 H (0.9-1.1) Sodium (135-145) mmol/L Potassium (3.3-5.1) mmol/L Chloride (96-108) mmol/L Carbon Dioxide (22-29) mmol/L Anion Gap (12-20) BUN (9-16) mg/dL Creatinine (0.5-1.4) mg/dL Estim Creat Clear Calc Estimated GFR Random Glucose (60-115) mg/dL Lactic Acid (0.5-2.0) mmol/L Calcium (8.4-10.2) mg/dL Total Bilirubin (0.0-1.0) mg/dL AST (5-31) U/L ALT (0-31) U/L Alkaline Phosphatase (39-117) U/L Troponin I High Sens (<3.5-17.0) ng/L Total Protein (6.5-8.0) g/dL Albumin (3.5-5.0) g/dL COVID-19 (YESIAC) Negative (Negative) COVID-19 Clin Com See Note 11/11/22 11/11/22 11/11/22 Range/Units 21:17 21:17 21:17 WBC (4.8-10.8) X10*3/uL RBC (4.20-5.50) X10*6/uL Hgb (12.0-16.0) g/dl Hct (37.0-47.0) % MCV (80.0-98.0) fL MCH (27.0-33.0) pg MCHC (31.0-35.0) g/dl RDW (11.0-16.0) % Plt Count (160-400) X10*3/uL MPV (9.4-12.3) fL Immature Gran % (Auto) (0.0-0.4) % Neut % (Auto) (45-73) % Lymph % (Auto) (20-40) % Cochran % (Auto) (2-11) % Eos % (Auto) (0-4) % Baso % (Auto) (0-2) % Lymph # (Auto) (1.2-4.9) X10*3/uL Cochran # (Auto) (0.1-1.2) X10*3/uL Eos # (Auto) (0.0-0.4) X10*3/uL Baso # (Auto) (0.0-0.2) X10*3/uL Abs Immat Gran (auto) (0.00-0.03) X10*3/uL Absolute Neuts (auto) (2.0-8.3) x10*3/uL Absolute Nucleated RBC (0.0-0.012) X10*3/uL Nucleated RBC % (auto) (0.0-0.2) /100WBC PT (10.0-13.1) SEC INR (0.9-1.1) Sodium 142 (135-145) mmol/L Potassium 4.5 (3.3-5.1) mmol/L Chloride 107 (96-108) mmol/L Carbon Dioxide 29 (22-29) mmol/L Anion Gap 11 L (12-20) BUN 22 H (9-16) mg/dL Creatinine 1.27 (0.5-1.4) mg/dL Estim Creat Clear Calc 35.3 Estimated GFR 40 Random Glucose 103 (60-115) mg/dL Lactic Acid 1.9 (0.5-2.0) mmol/L Calcium 9.5 D (8.4-10.2) mg/dL Total Bilirubin 0.3 (0.0-1.0) mg/dL AST 18 (5-31) U/L ALT 16 (0-31) U/L Alkaline Phosphatase 118 H (39-117) U/L Troponin I High Sens 14.9 D (<3.5-17.0) ng/L Total Protein 7.1 (6.5-8.0) g/dL Albumin 3.4 L (3.5-5.0) g/dL COVID-19 (YESICA) (Negative) COVID-19 Clin Com Independent Interpretation I performed an independent interpretation of an: EKG Interpretation: AFib with slow ventricular response heart rate 53 beats per minute nonspecific ST T wave changes no acute ischemic Discharge Plan Discharge Clinical Impression: Weakness, Bradycardia Patient Disposition: er [facility] Transfer Details: To detention Instructions: Bradycardia (ED), Weakness (ED) Additional Instructions: No signs of sepsis/infection , patient had bradycardia in the heart rate 50s but blood pressure was stable Advised to decrease the dose of Coreg to half tablet twice daily (6.25 mg twice daily) and follow up with sales clerk food May hold Coreg if heart rate persistently less than 50 Prescriptions: No Action furosemide 40 mg Tablet 40 mg PO DAILY clonazepam 0.5 mg Tablet 0.25 mg PO BEDTIME Rx Instructions: administer 30 minutes before bedtime amlodipine 2.5 mg Tablet 2.5 mg PO BEDTIME losartan 50 mg Tablet 50 mg PO DAILY atorvastatin 40 mg Tablet 40 mg PO DAILY sennosides [Riri-kenneth] 8.6 mg Tablet 17.2 mg PO DAILY potassium chloride 10 mEq Capsule, Extended Release 10 meq PO DAILY clonidine HCl 0.1 mg Tablet 0.1 mg PO BID carvedilol 12.5 mg Tablet 12.5 mg PO BID Rx Instructions: must administer with a meal/food isosorbide mononitrate 60 mg Tablet Extended Release 24 Hr 60 mg PO DAILY omeprazole 20 mg Capsule,Delayed Release(Dr/Ec) 20 mg PO DAILY@0630 magnesium 250 mg Tablet 250 mg PO DAILY quetiapine 25 mg Tablet 25 mg PO DAILY hydralazine 25 mg Tablet 25 mg PO QID quetiapine 50 mg Tablet 50 mg PO DAILY@1400 quetiapine 25 mg Tablet 12.5 mg PO DAILY PRN (Reason: Agitation) gabapentin 300 mg Capsule 300 mg PO BEDTIME acetaminophen 325 mg Tablet 650 mg PO Q8H PRN (Reason: Pain) albuterol sulfate 2.5 mg /3 mL (0.083 %) Solution For Nebulization 2.5 mg INHALATION Q4H PRN (Reason: Shortness Of Breath Or Wheezing) promethazine 25 mg Suppository 25 mg OR Q6H PRN (Reason: Vomiting) Rx Instructions: For greater than 3 episodes of vomiting in short period of time/within 24 hrs loperamide 2 mg Tablet 4 mg PO BID PRN (Reason: 5 loose stools) Rx Instructions: do not exceed 8 mg/24 hrs loperamide 2 mg Tablet 2 mg PO DAILY PRN (Reason: Loose Stool) Rx Instructions: after each loose stool ibuprofen 400 mg Tablet 400 mg PO TID PRN (Reason: Pain) Rx Instructions: administer with food multivitamin Tablet 1 tab PO DAILY Eliquis 5 mg Tablet 5 mg PO BID Qty: 60 0RF Discharge Date/Time: 11/11/22 23:33
--- NOTE | 2022-11-11 18:36 | ECG_ITS ---
Test Reason : WEAK Blood Pressure : / mmHG Vent. Rate : 053 BPM Atrial Rate : 000 BPM P-R Int : 000 ms QRS Dur : 098 ms QT Int : 466 ms P-R-T Axes : 000 036 -44 degrees QTc Int : 437 ms Atrial fibrillation with slow ventricular response ST depressoin anterolateral leads, possible ischemia Abnormal ECG When compared with ECG of 22-AUG-2022 17:08, Lateral ST depression slightly more prominent Referred By: Anthony Kay Electronically Signed By:RENY MCKEON
[2022-11-11 18:42] VITALS: BP 171/88; BP 175/75; PULSE 54; PULSE 60; RESP 18; TEMP 36.8; O2SAT 100; O2SAT 99; BMI 29.9
[2022-11-11 21:28] LABS: MANUAL DIFF FLAG NO
[2022-11-11 21:32] LABS: Basophils Absolute Auto 0.1 X10*3/uL (0.0-0.2); Basophils Percent Auto 0.7 % (0-2); Eosinophils Absolute Auto 0.4 X10*3/uL (0.0-0.4); Eosinophils Percent Auto 4.8 % (0-4); Hematocrit 28.5 % (37.0-47.0); Hemoglobin 8.9 g/dl (12.0-16.0); Imm Gran Abs Auto 0.03 X10*3/uL (0.00-0.03); Imm Gran Pct Auto 0.4 % (0.0-0.4); Lymphocytes Absolute Auto 2.2 X10*3/uL (1.2-4.9); Lymphocytes Percent Auto 26.7 % (20-40); Mean Corpuscular HGB Conc 31.2 g/dl (31.0-35.0); Mean Corpuscular Hemoglobin 27.1 pg (27.0-33.0); Mean Corpuscular Volume 86.9 fL (80.0-98.0); Mean Platelet Volume 8.4 fL (9.4-12.3); Monocytes Absolute Auto 0.7 X10*3/uL (0.1-1.2); Monocytes Percent Auto 8.9 % (2-11); Neutrophils Absolute Auto 4.8 x10*3/uL (2.0-8.3); Neutrophils Percent Auto 58.5 % (45-73); Platelet Count 314 X10*3/uL (160-400); Red Blood Count 3.28 X10*6/uL (4.20-5.50); Red Cell Distribution Width 17.4 % (11.0-16.0); White Blood Count 8.2 X10*3/uL (4.8-10.8)
[2022-11-11 21:37] LABS: INTERNATIONAL NORM RATIO 1.3 (0.9-1.1); Prothrombin Time 15.4 SEC (10.0-13.1)
[2022-11-11 21:38] VITALS: BP 142/53; PULSE 61; RESP 13; TEMP 36.8; O2SAT 100
[2022-11-11 21:43] LABS: COVID-19 Test Negative (Negative); IDNOW Serial# 6674DD1D; Lactic Acid 1.9 mmol/L (0.5-2.0)
[2022-11-11 21:49] LABS: Alanine Aminotransferase 16 U/L (0-31); Albumin Level 3.4 g/dL (3.5-5.0); Alkaline Phosphatase 118 U/L (39-117); Anion Gap 11 (12-20); Aspartate Amino Transferase 18 U/L (5-31); Bilirubin Total 0.3 mg/dL (0.0-1.0); Blood Urea Nitrogen 22 mg/dL (9-16); Calcium 9.5 mg/dL (8.4-10.2); Carbon Dioxide 29 mmol/L (22-29); Chloride 107 mmol/L (96-108); Creatinine Clr Calc Pharmacy 35.3; Estimated Glomerular Filt Rate 40; Glucose Random 103 mg/dL (60-115); Potassium 4.5 mmol/L (3.3-5.1); Sodium 142 mmol/L (135-145); Total Protein 7.1 g/dL (6.5-8.0)
[2022-11-11 21:52] LABS: Troponin-I High Sensitivity 14.9 ng/L (<3.5-17.0)
--- NOTE | 2022-11-11 23:31 | PC.NURSE ---
Pt transported by [facility] to [facility] via stretcher, no apparent distress, calm and cooperative
== END 2022-11-11 23:33 | disposition skilled nursing facility (03) ==
PROVIDERS: Emergency Provider Internal Medicine
DX: R53.1 Weakness (principal); R00.1 Bradycardia, unspecified; Z20.822 Contact with and (suspected) exposure to COVID-19; I11.0 Hypertensive heart disease with heart failure; I50.9 Heart failure, unspecified; I48.91 Unspecified atrial fibrillation; F03.90 Unspecified dementia, unspecified severity, without behavioral disturbance, psychotic disturbance, mood disturbance, and anxiety; Z95.1 Presence of aortocoronary bypass graft; Z79.02 Long term (current) use of antithrombotics/antiplatelets; Z79.899 Other long term (current) drug therapy
CPT/HCPCS: 36415; 70450; 80053; 83605; 84484; 85025; 85610; 87040; 87635; 93005; 99284